=== PATIENT | male | born 1960 | race African-American/Black ===

== ENCOUNTER 2017-02-05 10:34 | Inpatient (IN) | payer MEDICAID, OTHER ==
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
[2017-02-05] MEDS ORDERED: MAG HYDROX/AL HYDROX/SIMETH 30 ML CUP PO PRN (14:36)
[2017-02-05] MEDS ORDERED: ACETAMINOPHEN TAB 325 MG TAB PO PRN (14:36)
[2017-02-05] MEDS ORDERED: MAGNESIUM HYDROXIDE 2,400 MG/10 ML CUP PO PRN (14:36)
[2017-02-05 15:19] LABS: Glucose,Whole Blood 133 mg/dL (75-99)
[2017-02-05] MEDS ORDERED: ZIPRASIDONE 20 MG VIAL IM PRN (15:31)
[2017-02-05] MEDS ORDERED: LORazepam 2 MG/ML SYRINGE IM PRN (15:31)
[2017-02-05 16:11] LABS: Appearance,Urine Clear (Clear); Bilirubin,Urine Negative (Negative); Glucose,Urine (UA) Negative (Negative); Ketones,Urine Negative (Negative); Leukocyte Esterase,Urine Negative (Negative); Nitrite,Urine Negative (Negative); PH, Urine 5.5 (5.0-8.0); Protein,Urine Trace (Negative); Specific Gravity,Urine 1.022 (1.001-1.035); UA Billing (MACRO vs. MICRO) CHEM
[2017-02-05 16:25] LABS: Basophils # (A) 0.1 k/uL (0-0.2); Basophils % (A) 1 %; CH 30.8; CHCM 33.9; Eosinophils # (A) 0.3 k/uL (0-0.7); Eosinophils % (A) 4 %; HCT 40.6 % (39.0-53.0); HDW 3.03; HGB 13.8 gm/dL (13.0-17.5); Luc # (Auto) 0.21; Luc % (Auto) 3; Lymphocytes # (A) 2.2 k/uL (1.0-4.8); Lymphocytes % (A) 31 %; MCH 31.1 pg (25.0-35.0); MCHC 34.1 g/dL (31.0-37.0); MCV 91.2 fL (80.0-100.0); Monocytes # (A) 0.4 k/uL (0-1.0); Monocytes % (A) 6 %; Neutrophils % (A) 56 %; RBC 4.45 m/uL (4.30-5.90); RDW 14.5 % (11.5-15.5); WBC 7.2 k/uL (3.8-10.6); WBC (Perox) 7.72
[2017-02-05 17:12] LABS: ALT 48 U/L (21-72); AST 28 U/L (17-59); Alkaline Phosphatase 86 U/L (38-126); Anion Gap 7 mmol/L; Blood Urea Nitrogen 15 mg/dL (9-20); Calcium 9.2 mg/dL (8.4-10.2); Carbon Dioxide 26 mmol/L (22-30); Chloride 106 mmol/L (98-107); Glucose 95 mg/dL (74-99); Non-African American GFR(MDRD) >60 (>60 ml/min/1.73 sqM); Potassium 3.9 mmol/L (3.5-5.1); Sodium 139 mmol/L (137-145); Total Bilirubin 0.5 mg/dL (0.2-1.3); Total Protein 6.7 g/dL (6.3-8.2)
[2017-02-05 17:36] LABS: Glucose,Whole Blood 112 mg/dL (75-99)
[2017-02-05] MEDS: metFORMIN 500 MG TAB PO SCH (17:58)
[2017-02-05] MEDS: HYDROcodone/APAP 5-325MG 1 EACH TAB PO PRN (17:58)
[2017-02-05] MEDS: INSULIN LISPRO (humaLOG) 300 UNIT/3 ML VIAL SQ SCH ×2 (18:00→20:39)
[2017-02-05 20:18] LABS: Glucose,Whole Blood 132 mg/dL (75-99)
[2017-02-05] MEDS: ATORVASTATIN 20 MG TAB PO SCH (20:40)
[2017-02-05 20:48] LABS: Hemoglobin A1C 5.9 % (4.2-6.1)
[2017-02-06 06:42] VITALS: PULSE 58
[2017-02-06 06:44] LABS: Glucose,Whole Blood 127 mg/dL (75-99)
[2017-02-06] MEDS: INSULIN LISPRO (humaLOG) 300 UNIT/3 ML VIAL SQ SCH ×6 (07:39→21:19)
[2017-02-06] MEDS: metFORMIN 500 MG TAB PO SCH ×2 (07:39→17:03)
[2017-02-06] MEDS: LISINOPRIL 5 MG TAB PO SCH (08:49)
[2017-02-06] MEDS: CHOLECALCIFEROL 1,000 UNIT TAB PO SCH (08:49)
[2017-02-06] MEDS: ASPIRIN 81 MG PO SCH (08:49)
[2017-02-06] MEDS: MULTIVITAMINS, THERA 1 EACH TAB PO SCH (08:49)
[2017-02-06] MEDS: NICOTINE 14MG/24HR PATCH TRANSDERM SCH (08:49)
[2017-02-06] MEDS: HYDROcodone/APAP 5-325MG 1 EACH TAB PO PRN ×2 (08:50→17:04)
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
[2017-02-06 11:56] VITALS: BMI 37.1
[2017-02-06 12:42] LABS: Glucose,Whole Blood 105 mg/dL (75-99)
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
[2017-02-06 17:53] LABS: Glucose,Whole Blood 99 mg/dL (75-99)
[2017-02-06 19:56] LABS: Glucose,Whole Blood 95 mg/dL (75-99)
[2017-02-06] MEDS ORDERED: INSULIN GLARGINE 100 UNIT/ML 10 ML VIAL SQ SCH (21:00)
[2017-02-06] MEDS: ATORVASTATIN 20 MG TAB PO SCH (21:12)
[2017-02-07 06:54] VITALS: BP 115/60; RESP 16; TEMP 97.8
[2017-02-07 07:13] LABS: Glucose,Whole Blood 98 mg/dL (75-99)
[2017-02-07] MEDS: INSULIN LISPRO (humaLOG) 300 UNIT/3 ML VIAL SQ SCH ×4 (08:03→12:45)
[2017-02-07] MEDS: MULTIVITAMINS, THERA 1 EACH TAB PO SCH (08:10)
[2017-02-07] MEDS: CHOLECALCIFEROL 1,000 UNIT TAB PO SCH (08:10)
[2017-02-07] MEDS: NICOTINE 14MG/24HR PATCH TRANSDERM SCH (08:10)
[2017-02-07] MEDS: ASPIRIN 81 MG PO SCH (08:10)
[2017-02-07] MEDS: LISINOPRIL 5 MG TAB PO SCH (08:10)
[2017-02-07] MEDS: metFORMIN 500 MG TAB PO SCH (08:10)
[2017-02-07] MEDS: HYDROcodone/APAP 5-325MG 1 EACH TAB PO PRN (08:11)
--- NOTE | 2017-02-07 10:45 | P.DS ---
Providers Date of admission: 02/05/17 14:35 Expected date of discharge: 02/07/17 Attending physician: Jaylin Glass MD Consults: 02/05/17 14:36 Consult Physician Routine Consulting Provider: Micki Courtney Consult Reason/Comments: follow up H & P Do you want consulting provider notified?: Yes Primary care physician: [facility] Hospital Course: Discharge Diagnoses: Cocaine use disorder, in early partial remission; alcohol use disorder, in early partial remission and marijuana use disorder in early partial remission Reason for Admission: Patient is a 56-year-old male [facility] from rehab at [place] in April 2016. Patient had been sober for 7-1/2 months and states that he met a woman several weeks prior to his admission and the Monday prior to his admission he began using cocaine, marijuana and alcohol with her. He states that he has had difficulties in the past with women and drugs and was using cocaine for sexual enhancement. Patient states that he began to feel suicidal after he realized that he had "messed up" and brought himself to the hospital. He states that he did not want to and did not make any suicide attempts, having suicidal thoughts while he was intoxicated. Patient had also stopped all of his medications for his medical problems. Patient reports having been treated in the past for depression but has not been on medication or in treatment for this for the last 3 years. Patient reports that he has not been feeling depressed and had been doing well in rehab until he had met this woman. Patient states that he was attending meetings while at the [facility]. Patient had moved to this area from [place]. Hospital Course: Patient was admitted on a voluntary basis, routine laboratory studies were obtained, medical consultation was obtained and the patient was ordered group and activity therapy and was placed on routine precautions. Patient was restarted on his medication for hypertension and diabetes mellitus. Patient was cooperative on the unit, reporting that he had made a mistake and once he was sober reported that he was no longer feeling suicidal and had no intention to take his life. Patient was not reporting any complaints of depression, was sleeping and eating well on the unit and his diabetes and hypertension were well controlled once the patient restarted his prior medications. Patient reported that he wished to return to the [facility] and was interested in trying to maintain his sobriety. Patient did not express or report any symptoms of depression and so no medications were started for this. Patient contacted his longterm house and he was able to return there and so will be discharged. Patient was also interested in a referral for outpatient therapy to discuss concerns that he has in relationships. Discharge Mental Status:Appearance/Attitude: Patient was dressed in a hospital gown, made good eye contact and was cooperative. Behavior: Patient did not display any psychomotor agitation or retardation. Speech/Language: Patient's speech was spontaneous and of normal volume and rhythm and he was coherent. Thought Process: Patient's thought processes were goal-directed and no circumstantial or tangential thought was elicited and no evidence of loose associations or flight of ideas. Thought Content: Patient denied any auditory or visual hallucinations, no paranoid or delusional ideation was elicited. Patient reports that he was eating and sleeping well. Patient stated that he was not feeling depressed, was motivated to return to the longterm house and maintaining his sobriety. Suicidal/Homicidal Ideation: Patient denied any current suicidal or homicidal ideation. Sensorium/Cognition: Patient was alert and oriented to person, place, and time and his memory was grossly intact. Mood/Affect: Patient's mood was euthymic and his affect was appropriate. Insight/Judgement: Patient's insight and judgment are fair. Laboratory Last Values WBC 7.2 k/uL (3.8-10.6) 02/05/17 16:15 RBC 4.45 m/uL (4.30-5.90) 02/05/17 16:15 Hgb 13.8 gm/dL (13.0-17.5) 02/05/17 16:15 Hct 40.6 % (39.0-53.0) 02/05/17 16:15 MCV 91.2 fL (80.0-100.0) 02/05/17 16:15 MCH 31.1 pg (25.0-35.0) 02/05/17 16:15 MCHC 34.1 g/dL (31.0-37.0) 02/05/17 16:15 RDW 14.5 % (11.5-15.5) 02/05/17 16:15 Plt Count 356 k/uL (150-450) 02/05/17 16:15 Neutrophils % 56 % 02/05/17 16:15 Lymphocytes % 31 % 02/05/17 16:15 Monocytes % 6 % 02/05/17 16:15 Eosinophils % 4 % 02/05/17 16:15 Basophils % 1 % 02/05/17 16:15 Neutrophils # 4.0 k/uL (1.3-7.7) 02/05/17 16:15 Lymphocytes # 2.2 k/uL (1.0-4.8) 02/05/17 16:15 Monocytes # 0.4 k/uL (0-1.0) 02/05/17 16:15 Eosinophils # 0.3 k/uL (0-0.7) 02/05/17 16:15 Basophils # 0.1 k/uL (0-0.2) 02/05/17 16:15 Sodium 139 mmol/L (137-145) 02/05/17 16:15 Potassium 3.9 mmol/L (3.5-5.1) 02/05/17 16:15 Chloride 106 mmol/L (98-107) 02/05/17 16:15 Carbon Dioxide 26 mmol/L (22-30) 02/05/17 16:15 Anion Gap 7 mmol/L 02/05/17 16:15 BUN 15 mg/dL (9-20) 02/05/17 16:15 Creatinine 1.22 mg/dL (0.66-1.25) 02/05/17 16:15 Est GFR (MDRD) Af Amer >60 (>60 ml/min/1.73 sqM) 02/05/17 16:15 Est GFR (MDRD) Non-Af >60 (>60 ml/min/1.73 sqM) 02/05/17 16:15 Glucose 95 mg/dL (74-99) 02/05/17 16:15 POC Glucose (mg/dL) 98 mg/dL (75-99) 02/07/17 07:00 POC Glu Proced Tech TRAM Shey Browne 02/07/17 07:[address] Glu mg/dL 123 mg/dL 02/05/17 16:15 Hemoglobin A1c 5.9 % (4.2-6.1) 02/05/17 16:15 Calcium 9.2 mg/dL (8.4-10.2) 02/05/17 16:15 Total Bilirubin 0.5 mg/dL (0.2-1.3) 02/05/17 16:15 AST 28 U/L (17-59) 02/05/17 16:15 ALT 48 U/L (21-72) 02/05/17 16:15 Alkaline Phosphatase 86 U/L (38-126) 02/05/17 16:15 Total Protein 6.7 g/dL (6.3-8.2) 02/05/17 16:15 Albumin 3.6 g/dL (3.5-5.0) 02/05/17 16:15 TSH 1.370 mIU/L (0.465-4.680) 02/05/17 16:15 Urine Color Yellow 02/05/17 12:25 Urine Appearance Clear (Clear) 02/05/17 12:25 Urine pH 5.5 (5.0-8.0) 02/05/17 12:25 Ur Specific [place] 1.022 (1.001-1.035) 02/05/17 12:25 Urine Protein Trace (Negative) H 02/05/17 12:25 Urine Glucose (UA) Negative (Negative) 02/05/17 12:25 Urine Ketones Negative (Negative) 02/05/17 12:25 Urine Blood Negative (Negative) 02/05/17 12:25 Urine Nitrite Negative (Negative) 02/05/17 12:25 Urine Bilirubin Negative (Negative) 02/05/17 12:25 Urine Urobilinogen 2.0 mg/dL (<2.0) 02/05/17 12:25 Ur Leukocyte Esterase Negative (Negative) 02/05/17 12:25 Urine Opiates Screen Not Detected (NotDetected) 02/05/17 12:25 Ur Oxycodone Screen Not Detected (NotDetected) 02/05/17 12:25 Urine Methadone Screen Not Detected (NotDetected) 02/05/17 12:25 Ur Propoxyphene Screen Not Detected (NotDetected) 02/05/17 12:25 Ur Barbiturates Screen Not Detected (NotDetected) 02/05/17 12:25 U Tricyclic Antidepress Not Detected (NotDetected) 02/05/17 12:25 Ur Phencyclidine Scrn Not Detected (NotDetected) 02/05/17 12:25 Ur Amphetamines Screen Not Detected (NotDetected) 02/05/17 12:25 U Methamphetamines Scrn Not Detected (NotDetected) 02/05/17 12:25 U Benzodiazepines Scrn Not Detected (NotDetected) 02/05/17 12:25 Urine Cocaine Screen Detected (NotDetected) H 02/05/17 12:25 U Marijuana (THC) Screen Detected (NotDetected) H 02/05/17 12:25 Risk Assessment: Patient's risk is low should he remain sober and avoid any use of alcohol/drugs, follow-up with outpatient therapy. Discharge Plan: Patient will return to a sober longterm house to live, patient was encouraged to maintain his sobriety and attend AA/NA meetings. Patient was also referred to [facility] for outpatient therapy. Patient was not prescribed any psychotropic medication, patient will continue on aspirin 81 mg a day, vitamin D3 1000 units a day, [place] 10-325 one tab twice a day on an as -needed basis for pain, Lantus 50 units subcu at bedtime, Apidra 12 units subcu 3 times a day, Lisinopril 5 mg daily, multivitamins 1 tab daily, Zocor 10 mg at bedtime and Glucophage 1000 mg twice a day. Patient reported to me that he needed prescriptions for his [place], Apidra and Lantus and had sufficient of his other medications as well as glucose testing supplies and needles to give himself the insulin. Patient was encouraged to follow-up with his primary care provider within the next 2 weeks. Patient was encouraged to avoid any alcohol or drugs. Patient Condition at Discharge: Stable Plan - Discharge Summary New Discharge Prescriptions: New Nicotine 14Mg/24Hr Patch [Habitrol] 1 patch TRANSDERM DAILY #14 patch Continue Multivitamins, Thera [Multivitamin (formulary)] 1 tab PO DAILY Cholecalciferol [Vitamin D3] 1,000 unit PO DAILY Aspirin [Adult Low Dose Aspirin EC] 81 mg PO DAILY metFORMIN HCL [Glucophage] 1,000 mg PO BID Simvastatin [Zocor] 10 mg PO HS Lisinopril [Zestril] 5 mg PO DAILY HYDROcodone/APAP 10-325MG [[place] 10-325] 1 tab PO BID PRN #28 PRN Reason: Pain Insulin Glargine [Lantus] 50 unit SQ HS 30 Days Insulin Glulisine [Apidra] 12 unit SQ TID 30 Days Discharge Medication List Aspirin [Adult Low Dose Aspirin EC] 81 mg PO DAILY 02/05/17 [History] Cholecalciferol [Vitamin D3] 1,000 unit PO DAILY 02/05/17 [History] Lisinopril [Zestril] 5 mg PO DAILY 02/05/17 [History] Multivitamins, Thera [Multivitamin (formulary)] 1 tab PO DAILY 02/05/17 [History ] Simvastatin [Zocor] 10 mg PO HS 02/05/17 [History] metFORMIN HCL [Glucophage] 1,000 mg PO BID 02/05/17 [History] HYDROcodone/APAP 10-325MG [[place] 10-325] 1 tab PO BID PRN #28 02/07/17 [Rx] Insulin Glargine [Lantus] 50 unit SQ HS 30 Days 02/07/17 [Rx] Insulin Glulisine [Apidra] 12 unit SQ TID 30 Days 02/07/17 [Rx] Nicotine 14Mg/24Hr Patch [Habitrol] 1 patch TRANSDERM DAILY #14 patch 02/07/17 [ Rx] Follow up Appointment(s)/Referral(s): Maykel Rodriguez [Outside] - 1 Week (w/ Chyna Perez. Patient must arrive at 1:30pm for paperwork) Flakita Pimentel MD [Primary Care Provider] - 1-2 days Discharge Disposition: HOME SELF-CARE
[2017-02-07 12:32] LABS: Glucose,Whole Blood 88 mg/dL (75-99)
== END 2017-02-07 15:10 | disposition home or self-care (01) | DRG 897 ==
LOC: EC 10:34 → 3MHU 14:35
PROVIDERS: ADMIT Psychiatry & Neurology Psychiatry; ATTEND Psychiatry & Neurology Psychiatry
DX: F14.29 Cocaine dependence with unspecified cocaine-induced disorder (principal); R45.851 Suicidal ideations; F10.29 Alcohol dependence with unspecified alcohol-induced disorder; I10 Essential (primary) hypertension; E11.9 Type 2 diabetes mellitus without complications; F12.29 Cannabis dependence with unspecified cannabis-induced disorder; M21.372 Foot drop, left foot; T40.2X6A Underdosing of other opioids, initial encounter; T45.2X6A Underdosing of vitamins, initial encounter; T46.4X6A Underdosing of angiotensin-converting-enzyme inhibitors, initial encounter; T46.6X6A Underdosing of antihyperlipidemic and antiarteriosclerotic drugs, initial encounter; T39.016A Underdosing of aspirin, initial encounter; F17.210 Nicotine dependence, cigarettes, uncomplicated; Z79.82 Long term (current) use of aspirin; Z79.4 Long term (current) use of insulin; Z79.899 Other long term (current) drug therapy; Z87.828 Personal history of other (healed) physical injury and trauma; Z89.422 Acquired absence of other left toe(s); Z89.412 Acquired absence of left great toe; Z91.5 Personal history of self-harm; Z71.41 Alcohol abuse counseling and surveillance of alcoholic; Z71.51 Drug abuse counseling and surveillance of drug abuser; Z79.891 Long term (current) use of opiate analgesic; Z86.59 Personal history of other mental and behavioral disorders; Z91.128 Patient's intentional underdosing of medication regimen for other reason
CPT/HCPCS: 80053; 80306; 81003; 82075; 83036; 84443; 85025; 99285

== ENCOUNTER 2017-02-27 03:12 | Emergency (ER) | payer OTHER ==
[2017-02-27 03:21] VITALS: BP 162/68; PULSE 86; RESP 18; TEMP 98.7
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
[2017-02-27 03:41] LABS: Glucose,Whole Blood 100 mg/dL (75-99)
== END 2017-02-27 06:28 | disposition home or self-care (01) ==
LOC: EC 03:12
DX: F32.9 Major depressive disorder, single episode, unspecified (principal); R45.851 Suicidal ideations; I10 Essential (primary) hypertension; E11.9 Type 2 diabetes mellitus without complications; F17.200 Nicotine dependence, unspecified, uncomplicated; Z79.82 Long term (current) use of aspirin; Z79.84 Long term (current) use of oral hypoglycemic drugs; Z79.899 Other long term (current) drug therapy; Z59.0 Homelessness
CPT/HCPCS: 36415; 80306; 82075; 99284

== ENCOUNTER 2018-04-07 03:24 | Emergency (ER) | payer OTHER ==
[2018-04-07 04:35] LABS: Glucose,Whole Blood 77 mg/dL (75-99)
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
[2018-04-07 05:03] LABS: Appearance,Urine Clear (Clear); Bilirubin,Urine Negative (Negative); Blood,Urine Negative (Negative); Color,Urine Yellow; Glucose,Urine (UA) Negative (Negative); Ketones,Urine Negative (Negative); Leukocyte Esterase,Urine Negative (Negative); Nitrite,Urine Negative (Negative); Protein,Urine Negative (Negative); Specific Gravity,Urine 1.009 (1.001-1.035); Urobilinogen,Urine <2.0 mg/dL (<2.0)
[2018-04-07 05:16] LABS: Amphetamine Screen,Urine Not Detected (NotDetected); Barbiturate Screen,Urine Not Detected (NotDetected); Benzodiazepines Screen,Urine Not Detected (NotDetected); Cocaine Screen,Urine Detected (NotDetected); Methadone Screen, Urine Not Detected (NotDetected); Opiate Screen,Urine Not Detected (NotDetected); Oxycodone Screen, Urine Not Detected (NotDetected); Phencyclidine Screen,Urine Not Detected (NotDetected); Tricyclic Antidepressant,Urine Not Detected (NotDetected); Urn Cannabinoid Scrn Not Detected (NotDetected)
[2018-04-07] MEDS ORDERED: HYDROcodone/APAP 10-325MG 1 EACH TAB PO ONE (06:15)
[2018-04-07] MEDS ORDERED: INSULIN ASPART 100 UNIT/ML 1 ML 10 ML VIAL SQ SCH ×2 (07:30)
[2018-04-07] MEDS ORDERED: ASPIRIN 81 MG PO SCH (09:00)
[2018-04-07] MEDS ORDERED: NON-FORMULARY DRUG (Metformin Hcl [Glucophage] 1,000 MG) PO SCH (09:00)
[2018-04-07] MEDS ORDERED: LISINOPRIL 5 MG TAB PO SCH (09:00)
[2018-04-07] MEDS ORDERED: NICOTINE 14MG/24HR PATCH TRANSDERM SCH (09:00)
[2018-04-07 10:41] LABS: Basophils # (A) 0.1 k/uL (0-0.2); Basophils % (A) 1 %; Eosinophils # (A) 0.2 k/uL (0-0.7); Eosinophils % (A) 3 %; HGB 15.1 gm/dL (13.0-17.5); Lymphocytes # (A) 1.9 k/uL (1.0-4.8); Lymphocytes % (A) 24 %; MCH 30.7 pg (25.0-35.0); MCHC 33.6 g/dL (31.0-37.0); MCV 91.5 fL (80.0-100.0); Mean Platelet Volume 6.3; Monocytes # (A) 0.6 k/uL (0-1.0); Monocytes % (A) 7 %; Neutrophils # (A) 4.9 k/uL (1.3-7.7); Neutrophils % (A) 62 %; Platelet Count 263 k/uL (150-450); RBC 4.92 m/uL (4.30-5.90); RDW 13.7 % (11.5-15.5); WBC 7.8 k/uL (3.8-10.6)
[2018-04-07 10:50] LABS: ALT 32 U/L (21-72); AST 36 U/L (17-59); Albumin 4.2 g/dL (3.5-5.0); Alkaline Phosphatase 94 U/L (38-126); Anion Gap 10 mmol/L; Blood Urea Nitrogen 14 mg/dL (9-20); Calcium 9.6 mg/dL (8.4-10.2); Carbon Dioxide 23 mmol/L (22-30); Chloride 106 mmol/L (98-107); Glucose 74 mg/dL (74-99); Potassium 4.1 mmol/L (3.5-5.1); Sodium 139 mmol/L (137-145); Total Bilirubin 0.7 mg/dL (0.2-1.3); Total Protein 7.8 g/dL (6.3-8.2)
[2018-04-07 21:40] VITALS: RESP 18
[2018-04-07 22:09] LABS: Glucose,Whole Blood 141 mg/dL (75-99)
[2018-04-08 00:19] VITALS: BP 131/66; PULSE 89; TEMP 97.5
== END 2018-04-08 00:19 | disposition other institution (70) ==
LOC: EC 03:24
DX: F32.9 Major depressive disorder, single episode, unspecified (principal); G89.29 Other chronic pain; R45.851 Suicidal ideations; R44.0 Auditory hallucinations; E11.9 Type 2 diabetes mellitus without complications; I10 Essential (primary) hypertension; F17.200 Nicotine dependence, unspecified, uncomplicated; Z79.899 Other long term (current) drug therapy; Z79.4 Long term (current) use of insulin; Z79.82 Long term (current) use of aspirin; Z53.8 Procedure and treatment not carried out for other reasons
CPT/HCPCS: 36415; 80053; 80306; 81003; 83036; 85025; 99285

== ENCOUNTER 2018-06-24 13:32 | Emergency (ER) | payer OTHER ==
[2018-06-24 15:06] LABS: Glucose,Whole Blood 113 mg/dL (75-99)
[2018-06-24 15:14] LABS: Amphetamine Screen,Urine Not Detected (NotDetected); Barbiturate Screen,Urine Not Detected (NotDetected); Benzodiazepines Screen,Urine Not Detected (NotDetected); Cocaine Screen,Urine Detected (NotDetected); Methadone Screen, Urine Not Detected (NotDetected); Opiate Screen,Urine Not Detected (NotDetected); Oxycodone Screen, Urine Not Detected (NotDetected); Phencyclidine Screen,Urine Not Detected (NotDetected); Tricyclic Antidepressant,Urine Not Detected (NotDetected); Urn Cannabinoid Scrn Not Detected (NotDetected)
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
[2018-06-24 17:17] LABS: Basophils # (A) 0.1 k/uL (0-0.2); Basophils % (A) 1 %; Eosinophils # (A) 0.1 k/uL (0-0.7); Eosinophils % (A) 3 %; HCT 45.4 % (39.0-53.0); HGB 15.5 gm/dL (13.0-17.5); Lymphocytes % (A) 38 %; MCH 32.3 pg (25.0-35.0); MCHC 34.3 g/dL (31.0-37.0); MCV 94.2 fL (80.0-100.0); Mean Platelet Volume 6.4; Monocytes # (A) 0.2 k/uL (0-1.0); Monocytes % (A) 5 %; Neutrophils # (A) 2.7 k/uL (1.3-7.7); Neutrophils % (A) 50 %; Platelet Count 276 k/uL (150-450); RBC 4.81 m/uL (4.30-5.90); RDW 15.3 % (11.5-15.5); WBC 5.4 k/uL (3.8-10.6)
[2018-06-24 17:29] LABS: ALT 68 U/L (21-72); AST 62 U/L (17-59); Albumin 3.9 g/dL (3.5-5.0); Alkaline Phosphatase 93 U/L (38-126); Anion Gap 7 mmol/L; Blood Urea Nitrogen 16 mg/dL (9-20); Calcium 9.5 mg/dL (8.4-10.2); Carbon Dioxide 25 mmol/L (22-30); Chloride 108 mmol/L (98-107); Glucose 143 mg/dL (74-99); Potassium 4.1 mmol/L (3.5-5.1); Sodium 140 mmol/L (137-145); Total Bilirubin 0.4 mg/dL (0.2-1.3); Total Protein 7.3 g/dL (6.3-8.2)
[2018-06-24 18:34] LABS: Appearance,Urine Clear (Clear); Bilirubin,Urine Negative (Negative); Blood,Urine Negative (Negative); Color,Urine Yellow; Glucose,Urine (UA) Negative (Negative); Ketones,Urine Negative (Negative); Leukocyte Esterase,Urine Negative (Negative); Nitrite,Urine Negative (Negative); PH, Urine 5.5 (5.0-8.0); Protein,Urine Trace (Negative); Specific Gravity,Urine 1.019 (1.001-1.035); Urobilinogen,Urine <2.0 mg/dL (<2.0)
[2018-06-24 18:45] LABS: Glucose,Whole Blood 121 mg/dL (75-99)
[2018-06-24] MEDS ORDERED: HYDROcodone/APAP 10-325MG 1 EACH TAB PO ONE (18:51)
[2018-06-24 21:09] VITALS: BP 137/89; PULSE 87; RESP 15; TEMP 98.7
== END 2018-06-24 21:30 ==
LOC: EC 13:32
DX: R45.851 Suicidal ideations (principal); F31.30 Bipolar disorder, current episode depressed, mild or moderate severity, unspecified; R44.0 Auditory hallucinations; G89.29 Other chronic pain; M79.606 Pain in leg, unspecified; I10 Essential (primary) hypertension; E11.9 Type 2 diabetes mellitus without complications; F17.200 Nicotine dependence, unspecified, uncomplicated; Z79.4 Long term (current) use of insulin; Z79.82 Long term (current) use of aspirin; Z79.899 Other long term (current) drug therapy; Z89.412 Acquired absence of left great toe; Z89.422 Acquired absence of other left toe(s)
CPT/HCPCS: 36415; 80053; 80306; 81003; 82075; 85025; 99285

== ENCOUNTER 2018-07-08 09:30 | Inpatient (IN) | payer MEDICAID, OTHER ==
[2018-07-08] MEDS ORDERED: FAMOTIDINE 20 MG TAB PO STA (09:55)
[2018-07-08] MEDS ORDERED: ONDANSETRON ODT 4 MG TAB PO STA (09:55)
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
[2018-07-08 14:30] LABS: Anisocytosis Slight; Basophils # (A) 0.1 k/uL (0-0.2); Basophils % (A) 2 %; Eosinophils # (A) 0.2 k/uL (0-0.7); Eosinophils % (A) 3 %; Lymphocytes # (A) 2.2 k/uL (1.0-4.8); Lymphocytes % (A) 38 %; MCH 31.9 pg (25.0-35.0); MCHC 34.2 g/dL (31.0-37.0); MCV 93.3 fL (80.0-100.0); Mean Platelet Volume 8.1; Monocytes # (A) 0.5 k/uL (0-1.0); Monocytes % (A) 8 %; Neutrophils # (A) 2.6 k/uL (1.3-7.7); Neutrophils % (A) 45 %; Platelet Count 290 k/uL (150-450); RBC 4.71 m/uL (4.30-5.90); RDW 16.5 % (11.5-15.5); WBC 5.8 k/uL (3.8-10.6)
[2018-07-08 14:33] LABS: Appearance,Urine Clear (Clear); Bilirubin,Urine Negative (Negative); Blood,Urine Negative (Negative); Color,Urine Yellow; Glucose,Urine (UA) Negative (Negative); Ketones,Urine 2+ (Negative); Leukocyte Esterase,Urine Negative (Negative); Nitrite,Urine Negative (Negative); Protein,Urine Trace (Negative); Specific Gravity,Urine 1.026 (1.001-1.035)
[2018-07-08 14:39] LABS: Albumin 3.9 g/dL (3.5-5.0); Calcium 8.9 mg/dL (8.4-10.2); Potassium 4.2 mmol/L (3.5-5.1); Total Bilirubin 0.7 mg/dL (0.2-1.3); Total Protein 7.1 g/dL (6.3-8.2)
[2018-07-08 14:42] LABS: Amphetamine Screen,Urine Not Detected (NotDetected); Barbiturate Screen,Urine Not Detected (NotDetected); Benzodiazepines Screen,Urine Not Detected (NotDetected); Cocaine Screen,Urine Detected (NotDetected); Methadone Screen, Urine Not Detected (NotDetected); Opiate Screen,Urine Not Detected (NotDetected); Oxycodone Screen, Urine Not Detected (NotDetected); Phencyclidine Screen,Urine Not Detected (NotDetected); Tricyclic Antidepressant,Urine Not Detected (NotDetected); Urn Cannabinoid Scrn Not Detected (NotDetected)
[2018-07-08] MEDS ORDERED: MAG HYDROX/AL HYDROX/SIMETH 30 ML CUP PO PRN (18:49)
[2018-07-08] MEDS ORDERED: ACETAMINOPHEN TAB 325 MG TAB PO PRN (18:49)
[2018-07-08] MEDS ORDERED: MAGNESIUM HYDROXIDE 2,400 MG/10 ML CUP PO PRN (18:49)
[2018-07-08] MEDS ORDERED: LORazepam 0.5 MG TAB PO PRN (18:53)
[2018-07-08 21:26] LABS: Glucose,Whole Blood 125 mg/dL (75-99)
[2018-07-08 23:11] VITALS: BMI 37.2
[2018-07-09 06:06] LABS: Glucose,Whole Blood 135 mg/dL (75-99)
[2018-07-09] MEDS: NICOTINE 14MG/24HR PATCH TRANSDERM SCH (09:01)
[2018-07-09] MEDS ORDERED: traZODone HCL 50 MG TAB PO PRN (09:35)
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
[2018-07-09] MEDS: DULoxetine HCL 30 MG CAPSULE.DR PO SCH (10:54)
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
[2018-07-09 11:17] LABS: Hemoglobin A1C 6.1 % (4.0-6.0)
[2018-07-09] MEDS: metFORMIN 500 MG TAB PO SCH ×2 (11:24→18:02)
[2018-07-09] MEDS: ATORVASTATIN 40 MG TAB PO SCH (11:24)
[2018-07-09] MEDS: FOLIC ACID 1 MG TAB PO SCH (11:24)
[2018-07-09] MEDS: THIAMINE 100 MG TAB PO SCH (11:25)
[2018-07-09] MEDS: LISINOPRIL 5 MG TAB PO SCH (11:25)
[2018-07-09] MEDS: MULTIVITAMINS, THERA 1 EACH TAB PO SCH (11:25)
[2018-07-09 12:37] LABS: Glucose,Whole Blood 126 mg/dL (75-99)
[2018-07-09] MEDS: INSULIN ASPART (NovoLOG) 100 UNIT/ML VIAL SQ SCH ×5 (13:06→19:57)
[2018-07-09 17:33] LABS: Glucose,Whole Blood 107 mg/dL (75-99)
[2018-07-09 20:00] LABS: Glucose,Whole Blood 127 mg/dL (75-99)
[2018-07-09] MEDS ORDERED: INSULIN DETEMIR (LEVEMIR) 100 UNIT/ML SYR SQ SCH (21:00)
[2018-07-10 06:20] LABS: Glucose,Whole Blood 103 mg/dL (75-99)
[2018-07-10] MEDS: INSULIN ASPART (NovoLOG) 100 UNIT/ML VIAL SQ SCH ×7 (07:46→20:37)
[2018-07-10] MEDS: metFORMIN 500 MG TAB PO SCH ×2 (08:54→17:39)
[2018-07-10] MEDS: DULoxetine HCL 30 MG CAPSULE.DR PO SCH (08:55)
[2018-07-10] MEDS: NICOTINE 14MG/24HR PATCH TRANSDERM SCH (08:55)
[2018-07-10] MEDS: ATORVASTATIN 40 MG TAB PO SCH (08:55)
[2018-07-10] MEDS: LISINOPRIL 5 MG TAB PO SCH (08:55)
--- NOTE | 2018-07-10 10:47 | P.PN ---
Progress Note - Text Interval history: The patient's found in his room. He indicates that his stomach is upset and he had diarrhea this morning. He was able to eat breakfast. He has met with social work he has the number for the access line but has not yet called. We discussed the importance of calling and he was agreeable. He has no questions or concerns regarding medication. He indicates he went to groups yesterday but none this morning due to not feeling well. Mental status exam: The patient is alert he is lying in bed he is dressed in hospital gowns. Eye contact is appropriate. He indicates his mood is still depressed he states he still has some intermittent suicidal thoughts but feels safe in the hospital. He is reporting no homicidal ideation. He is endorsing no auditory or visual hallucinations or any specific delusions. He demonstrates no verbal or physical aggressiveness. Insight and judgment limited. He is oriented to person place month and year. He Plan: The patient will continue on his current psychotropic medication. We will monitor him for safety and encourage participation in the milieu. He is instructed to call the access line today to initiate the process of getting accepted to inpatient chemical dependency treatment. Vital signs reviewed. CIWA score 0.
[2018-07-10] MEDS: FOLIC ACID 1 MG TAB PO SCH (12:30)
[2018-07-10] MEDS: MULTIVITAMINS, THERA 1 EACH TAB PO SCH (12:31)
[2018-07-10] MEDS: THIAMINE 100 MG TAB PO SCH (12:31)
[2018-07-10 12:37] LABS: Glucose,Whole Blood 106 mg/dL (75-99)
[2018-07-10 17:32] LABS: Glucose,Whole Blood 115 mg/dL (75-99)
[2018-07-10 20:22] LABS: Glucose,Whole Blood 106 mg/dL (75-99)
[2018-07-10] MEDS: INSULIN DETEMIR (LEVEMIR) 100 UNIT/ML SYR SQ SCH (21:19)
[2018-07-11 03:00] LABS: Glucose,Whole Blood 107 mg/dL (75-99)
[2018-07-11 06:52] LABS: Glucose,Whole Blood 112 mg/dL (75-99)
[2018-07-11] MEDS: INSULIN ASPART (NovoLOG) 100 UNIT/ML VIAL SQ SCH ×7 (07:54→20:30)
[2018-07-11] MEDS: metFORMIN 500 MG TAB PO SCH ×2 (07:57→17:15)
[2018-07-11] MEDS: LISINOPRIL 5 MG TAB PO SCH (07:57)
[2018-07-11] MEDS: DULoxetine HCL 30 MG CAPSULE.DR PO SCH (07:58)
[2018-07-11] MEDS: ATORVASTATIN 40 MG TAB PO SCH (07:58)
--- NOTE | 2018-07-11 10:46 | P.PN ---
Progress Note - Text Interval history: The patient is found in his room he reports feeling sick. He describes nausea and diarrhea. He indicates he did not eat yesterday or breakfast this morning. We discussed that this could be due to the Cymbalta or a viral etiology. We will go ahead and discontinue the Cymbalta in case it is iatrogenic. He did call for inpatient chemical dependency treatment placement and he is scheduled to be at [facility] on July 16. The patient indicates he attended some group activities yesterday. Mental status exam: The patient is an -Italian male appearing his stated age. He is lying in bed. He makes eye contact speech is fluent spontaneous nonpressured. He endorses a depressed mood with ongoing suicidal thoughts. He feels hopeless. He reports no homicidal ideation intent or plan. He is reporting no auditory or visual hallucinations or any specific delusions. There is no observed evidence of psychosis. He demonstrates no tangential thinking loose associations or flight of ideas. He does not appear hypomanic or manic. Insight and judgment limited. Affect constricted. Plan: We will discontinue the Cymbalta in case it is causing his GI distress. We'll monitor those symptoms further and monitor him for safety. He is encouraged to participate in the milieu. Vital signs reviewed.
[2018-07-11 12:16] LABS: Glucose,Whole Blood 151 mg/dL (75-99)
[2018-07-11] MEDS: MULTIVITAMINS, THERA 1 EACH TAB PO SCH (12:51)
[2018-07-11] MEDS: FOLIC ACID 1 MG TAB PO SCH (12:51)
[2018-07-11] MEDS: THIAMINE 100 MG TAB PO SCH (12:51)
[2018-07-11 17:05] LABS: Glucose,Whole Blood 117 mg/dL (75-99)
[2018-07-11 20:13] LABS: Glucose,Whole Blood 116 mg/dL (75-99)
[2018-07-11] MEDS: INSULIN DETEMIR (LEVEMIR) 100 UNIT/ML SYR SQ SCH ×2 (20:27→22:26)
[2018-07-12 05:56] LABS: Glucose,Whole Blood 255 mg/dL (75-99)
[2018-07-12] MEDS: metFORMIN 500 MG TAB PO SCH ×2 (07:48→17:30)
[2018-07-12] MEDS: ATORVASTATIN 40 MG TAB PO SCH (07:48)
[2018-07-12] MEDS: LISINOPRIL 5 MG TAB PO SCH (07:49)
[2018-07-12] MEDS: INSULIN ASPART (NovoLOG) 100 UNIT/ML VIAL SQ SCH ×7 (07:49→20:58)
--- NOTE | 2018-07-12 10:56 | P.PN ---
Progress Note - Text Interval history: The patient is found in his room he reports his stomach is feeling better. He believes the Cymbalta was causing the GI distress. He reports he attended groups in the afternoon he is encouraged to do so all day long. He indicates he is looking forward to going to [place] for inpatient chemical dependency treatment. His blood sugar was elevated this morning. He endorses hopelessness thinking with continued suicidal thoughts off and on. He feels it's necessary that he goes inpatient chemical dependency treatment directly from here. Mental status exam: The patient is an -Yemeni male appearing his stated age she is lying in bed. Eye contact is appropriate. Speech is fluent and spontaneous nonpressured. He reports feeling sad he indicates having continued suicidal thoughts but feels safe in the hospital. He is reporting no homicidal ideation. He reports no auditory or visual hallucinations or any specific delusions. He demonstrates no verbal or physical aggressiveness. Insight and judgment limited. Plan: The patient will continue being encouraged to attend groups. His GI symptoms seem to be improving which we presume were from the Cymbalta. I will wait another day before prescribing another antidepressant. Tomorrow we will discuss which medication we will initiate for his depressive symptoms. He strongly encouraged to attend all groups. Vital signs reviewed.
[2018-07-12 12:48] LABS: Glucose,Whole Blood 123 mg/dL (75-99)
[2018-07-12] MEDS: THIAMINE 100 MG TAB PO SCH (13:01)
[2018-07-12] MEDS: MULTIVITAMINS, THERA 1 EACH TAB PO SCH (13:01)
[2018-07-12] MEDS: FOLIC ACID 1 MG TAB PO SCH (13:01)
[2018-07-12 17:35] LABS: Glucose,Whole Blood 88 mg/dL (75-99)
[2018-07-12 20:17] LABS: Glucose,Whole Blood 124 mg/dL (75-99)
[2018-07-12] MEDS: INSULIN DETEMIR (LEVEMIR) 100 UNIT/ML SYR SQ SCH (20:59)
[2018-07-13 06:30] LABS: Glucose,Whole Blood 92 mg/dL (75-99)
[2018-07-13] MEDS: INSULIN ASPART (NovoLOG) 100 UNIT/ML VIAL SQ SCH ×7 (07:26→20:05)
[2018-07-13] MEDS: LISINOPRIL 5 MG TAB PO SCH (09:01)
[2018-07-13] MEDS: metFORMIN 500 MG TAB PO SCH ×2 (09:01→17:49)
[2018-07-13] MEDS: THIAMINE 100 MG TAB PO SCH (09:01)
[2018-07-13] MEDS: ATORVASTATIN 40 MG TAB PO SCH (09:01)
[2018-07-13] MEDS: MULTIVITAMINS, THERA 1 EACH TAB PO SCH (09:01)
[2018-07-13] MEDS: FOLIC ACID 1 MG TAB PO SCH (09:01)
--- NOTE | 2018-07-13 10:18 | P.PN ---
Progress Note - Text Interval history: The patient is found in group he follows me to an interview room. He states that his mood is beginning to improve. He is looking forward to going to [place] for inpatient chemical dependency treatment. He has made the call to arrange for transportation through his insurance. We reviewed his medication options as the Cymbalta seemed to cause intolerable GI side effects. We decided we would initiate Lexapro. He continues to affirm that he is never been on that medication. We reviewed potential benefits and side effects and his questions were answered. Mental status exam: The patient is an -Djiboutian male appearing his stated age. He is dressed in hospital gowns. He is ambulating without use of implement and is wearing a brace on his lower extremity. Eye contact is appropriate speech is fluent spontaneous nonpressured. He indicates his mood is improving he still has some fleeting suicidal thoughts. He is reporting no homicidal ideation. He is reporting no auditory or visual hallucinations or any specific delusions. He does not appear hypomanic or manic. Plan: The patient will be started on Lexapro 10 mg daily. We will monitor him for safety. He is encouraged to continue participating in groups. We plan to discharge him on Monday for inpatient chemical dependency treatment.
[2018-07-13 12:40] LABS: Glucose,Whole Blood 96 mg/dL (75-99)
[2018-07-13 17:41] LABS: Glucose,Whole Blood 156 mg/dL (75-99)
[2018-07-13] MEDS: INSULIN DETEMIR (LEVEMIR) 100 UNIT/ML SYR SQ SCH (20:06)
[2018-07-13 20:19] LABS: Glucose,Whole Blood 172 mg/dL (75-99)
[2018-07-14 06:24] LABS: Glucose,Whole Blood 107 mg/dL (75-99)
[2018-07-14] MEDS: INSULIN ASPART (NovoLOG) 100 UNIT/ML VIAL SQ SCH ×7 (06:47→20:06)
[2018-07-14] MEDS: THIAMINE 100 MG TAB PO SCH (09:44)
[2018-07-14] MEDS: ATORVASTATIN 40 MG TAB PO SCH (09:44)
[2018-07-14] MEDS: MULTIVITAMINS, THERA 1 EACH TAB PO SCH (09:44)
[2018-07-14] MEDS: LISINOPRIL 5 MG TAB PO SCH (09:45)
[2018-07-14] MEDS: metFORMIN 500 MG TAB PO SCH ×2 (09:45→17:21)
[2018-07-14] MEDS: FOLIC ACID 1 MG TAB PO SCH (09:45)
--- NOTE | 2018-07-14 12:36 | P.PN ---
Progress Note - Text Progress Note Date: 07/14/18 Progress Note - Text Interval history: The patient is found in group he follows me to an interview room. He states that his mood is beginning to improve. He is looking forward to going to [place] for inpatient chemical dependency treatment. He has made the call to arrange for transportation through his insurance. We reviewed his medication options as the Cymbalta seemed to cause intolerable GI side effects. We decided we would initiate Lexapro. He continues to affirm that he is never been on that medication. We reviewed potential benefits and side effects and his questions were answered. Mental status exam: The patient is an -Luxembourger male appearing his stated age. He is dressed in hospital gowns. He is ambulating without use of implement and is wearing a brace on his lower extremity. Eye contact is appropriate speech is fluent spontaneous nonpressured. He indicates his mood is improving he still has some fleeting suicidal thoughts. He is reporting no homicidal ideation. He is reporting no auditory or visual hallucinations or any specific delusions. He does not appear hypomanic or manic. Plan: The patient will be started on Lexapro 10 mg daily. We will monitor him for safety. He is encouraged to continue participating in groups. We plan to discharge him on Monday for inpatient chemical dependency treatment.
[2018-07-14 12:43] LABS: Glucose,Whole Blood 97 mg/dL (75-99)
[2018-07-14 17:29] LABS: Glucose,Whole Blood 127 mg/dL (75-99)
[2018-07-14 20:03] LABS: Glucose,Whole Blood 153 mg/dL (75-99)
[2018-07-14] MEDS: INSULIN DETEMIR (LEVEMIR) 100 UNIT/ML SYR SQ SCH (20:08)
[2018-07-15 06:40] LABS: Glucose,Whole Blood 90 mg/dL (75-99)
[2018-07-15 06:40] LABS: Glucose,Whole Blood 503 mg/dL (75-99)
[2018-07-15] MEDS: INSULIN ASPART (NovoLOG) 100 UNIT/ML VIAL SQ SCH ×7 (07:37→22:21)
[2018-07-15] MEDS: ATORVASTATIN 40 MG TAB PO SCH (10:04)
[2018-07-15] MEDS: LISINOPRIL 5 MG TAB PO SCH (10:05)
[2018-07-15] MEDS: metFORMIN 500 MG TAB PO SCH ×2 (10:05→18:02)
--- NOTE | 2018-07-15 11:38 | P.PN ---
Progress Note - Text Progress Note Date: 07/15/18 nterval history: The patient is found in group he follows me to an interview room. He states that his mood is beginning to improve. He is looking forward to going to [place] for inpatient chemical dependency treatment. He has made the call to arrange for transportation through his insurance. We reviewed his medication options as the Cymbalta seemed to cause intolerable GI side effects. We decided we would initiate Lexapro. He continues to affirm that he is never been on that medication. We reviewed potential benefits and side effects and his questions were answered. He is found lying in bed follow spelling and did not get up for breakfast. Encouraged him to get up and be part of the [facility] milieu and go to groups. Mental status exam: The patient is an -Citizen Of [place] male appearing his stated age. He is dressed in hospital gowns. He is ambulating without use of implement and is wearing a brace on his lower extremity. Eye contact is appropriate speech is fluent spontaneous nonpressured. He indicates his mood is improving he still has some fleeting suicidal thoughts. He is reporting no homicidal ideation. He is reporting no auditory or visual hallucinations or any specific delusions. He does not appear hypomanic or manic. Plan: The patient will be started on Lexapro 10 mg daily daily. We will monitor him for safety. He is encouraged to continue participating in groups. We plan to discharge him on Monday for inpatient chemical dependency treatment.
[2018-07-15 12:41] LABS: Glucose,Whole Blood 93 mg/dL (75-99)
[2018-07-15] MEDS: FOLIC ACID 1 MG TAB PO SCH (12:44)
[2018-07-15] MEDS: THIAMINE 100 MG TAB PO SCH (12:44)
[2018-07-15] MEDS: MULTIVITAMINS, THERA 1 EACH TAB PO SCH (12:44)
[2018-07-15 17:26] LABS: Glucose,Whole Blood 93 mg/dL (75-99)
[2018-07-15 20:26] LABS: Glucose,Whole Blood 95 mg/dL (75-99)
[2018-07-15] MEDS: INSULIN DETEMIR (LEVEMIR) 100 UNIT/ML SYR SQ SCH (21:33)
[2018-07-16 06:34] LABS: Glucose,Whole Blood 97 mg/dL (75-99)
[2018-07-16] MEDS: INSULIN ASPART (NovoLOG) 100 UNIT/ML VIAL SQ SCH ×7 (07:58→20:51)
[2018-07-16] MEDS: LISINOPRIL 5 MG TAB PO SCH (08:17)
[2018-07-16] MEDS: ESCITALOPRAM 10 MG TAB PO SCH (08:17)
[2018-07-16] MEDS: metFORMIN 500 MG TAB PO SCH ×2 (08:17→18:19)
[2018-07-16] MEDS: ATORVASTATIN 40 MG TAB PO SCH (08:17)
--- NOTE | 2018-07-16 10:03 | P.DS ---
Providers Date of admission: 07/08/18 18:38 Expected date of discharge: 07/16/18 Attending physician: Salazar Sellers Consults: 07/08/18 19:26 Consult Physician Routine Consulting Provider: Micki Courtney Consult Reason/Comments: H and P Do you want consulting provider notified?: Yes Primary care physician: Flakita Ramosumar - Discharge Diagnosis(es) (1) Major depressive disorder, recurrent severe without psychotic features Current Visit: Yes Status: Acute Priority: High (2) Alcohol use disorder Current Visit: Yes Status: Acute Priority: High (3) Cocaine use disorder Current Visit: Yes Status: Acute Priority: Medium Hospital Course: Brief summary admission note: This patient is a 57-year-old -Burmese male who was admitted to the mental health unit on the petition indicating he was having suicidal ideation. The patient reported he was struggling with life and wanted to kill himself. He had been noncompliant with medication. He describes poor energy and feeling tired. He has a known history of alcohol use disorder and had been drinking excessively. For full details please refer to my psychiatric evaluation dated 07/09/2018. Summary of hospital course: The patient was admitted to the mental health unit voluntarily. We reviewed his presenting symptoms and treatment options. We decided to prescribe Cymbalta for his symptoms of depression and this may as well help pain complaint. However the patient experienced significant GI distress with the Cymbalta and we had to discontinue that medication. After the side effect abated we initiated Lexapro 10 mg daily and he describes no side effects. He has been using trazodone at bedtime as needed. The patient selectively attended groups and this has improved over the course of the hospitalization. Appetite stable. He was seen by internal medicine for routine history and physical exam. He indicated he wanted to participate in inpatient chemical dependency treatment and that has been arranged at [facility]. The patient states his acute suicidal thoughts have resolved and he feels hopeful. Mental status exam: The patient is an -Burmese male appearing his stated age. He is dressed in shorts and a T-shirt he is wearing his own shoes with a brace on his left lower extremity. Eye contact is appropriate speech is fluent spontaneous nonpressured. He indicates his mood is better he feels motivated for inpatient chemical dependency treatment. He reports no acute suicidal or homicidal ideation intent or plan. He reports no auditory or visual hallucinations or any specific delusions. There is no observed evidence of psychosis. He demonstrates no tangential thinking loose associations or flight of ideas. He does not appear hypomanic or manic. He is oriented to person place and date. He demonstrates no verbal or physical aggressiveness. Impressions 1. Major depressive disorder recurrent severe without psychosis, alcohol use disorder, cocaine use disorder 2. Hypertension diabetes chronic pain 3. Homelessness limited support Plan: The patient will be discharged mental health unit today. He will be going to [facility] and for inpatient chemical dependency treatment. He will continue on Lexapro 10 mg daily trazodone 50 mg at bedtime as needed. At this time he is appropriate for transition to the next level of care. There is no imminent safety risk at this time. He is encouraged to return to the hospital with any acute safety concerns. Clearly he is instructed to abstain from any use of alcohol marijuana or illicit drugs as these will provoke mood symptoms and elevate his safety risk. Patient Condition at Discharge: Stable Plan - Discharge Summary Discharge Rx Participant: No New Discharge Prescriptions: New Atorvastatin [Lipitor] 40 mg PO DAILY #30 tab Insulin Aspart [NovoLOG (formulary)] 5 unit SQ AC-TID #1 vial Insulin Detemir [Levemir] 10 unit SQ HS #1 vial Lisinopril [Zestril] 5 mg PO DAILY #30 tab metFORMIN HCL [Glucophage] 1,000 mg PO BID-W/MEALS #60 tab traZODone HCL [Desyrel] 50 mg PO HS PRN #30 tab PRN Reason: Insomnia Continue Escitalopram [Lexapro] 10 mg PO DAILY #30 tab Multivitamins, Thera [Multivitamin (formulary)] 1 tab PO DAILY #30 tab Discontinued Aspirin [Adult Low Dose Aspirin EC] 81 mg PO DAILY metFORMIN HCL [Glucophage] 1,000 mg PO BID Lisinopril [Zestril] 5 mg PO DAILY Insulin Glargine [Lantus] 50 unit SQ HS 30 Days Insulin Glulisine [Apidra] 12 unit SQ AC-TID Cholecalciferol (Vitamin D3) [Vitamin D3] 2,000 unit PO DAILY Lurasidone [Latuda] 40 mg PO DAILY HYDROcodone/APAP 10-325MG [[place] 10-325] 1 tab PO DAILY PRN PRN Reason: Pain Simvastatin [Zocor] 80 mg PO DAILY Amitriptyline HCl [Elavil] 50 mg PO DAILY Discharge Medication List Atorvastatin [Lipitor] 40 mg PO DAILY #30 tab 07/16/18 [Rx] Escitalopram [Lexapro] 10 mg PO DAILY #30 tab 07/16/18 [Rx] Insulin Aspart [NovoLOG (formulary)] 5 unit SQ AC-TID #1 vial 07/16/18 [Rx] Insulin Detemir [Levemir] 10 unit SQ HS #1 vial 07/16/18 [Rx] Lisinopril [Zestril] 5 mg PO DAILY #30 tab 07/16/18 [Rx] Multivitamins, Thera [Multivitamin (formulary)] 1 tab PO DAILY #30 tab 07/16/18 [Rx] metFORMIN HCL [Glucophage] 1,000 mg PO BID-W/MEALS #60 tab 07/16/18 [Rx] traZODone HCL [Desyrel] 50 mg PO HS PRN #30 tab 07/16/18 [Rx] Follow up Appointment(s)/Referral(s): Flakita Pimentel MD [Primary Care Provider] - 1-2 days Activity/Diet/Wound Care/Special Instructions: cardiac diet , diabetic diet 1800 k tamie per day activity as tolerated
[2018-07-16 12:25] LABS: Glucose,Whole Blood 87 mg/dL (75-99)
[2018-07-16] MEDS: FOLIC ACID 1 MG TAB PO SCH (12:30)
[2018-07-16] MEDS: THIAMINE 100 MG TAB PO SCH (12:30)
[2018-07-16] MEDS: MULTIVITAMINS, THERA 1 EACH TAB PO SCH (12:30)
[2018-07-16 17:46] LABS: Glucose,Whole Blood 126 mg/dL (75-99)
[2018-07-16 20:16] LABS: Glucose,Whole Blood 155 mg/dL (75-99)
[2018-07-16] MEDS: INSULIN DETEMIR (LEVEMIR) 100 UNIT/ML SYR SQ SCH (21:39)
[2018-07-17 06:21] LABS: Glucose,Whole Blood 89 mg/dL (75-99)
[2018-07-17 06:29] VITALS: BP 107/54; PULSE 59; RESP 18; TEMP 97.9
[2018-07-17] MEDS: INSULIN ASPART (NovoLOG) 100 UNIT/ML VIAL SQ SCH ×2 (07:38)
[2018-07-17] MEDS: ESCITALOPRAM 10 MG TAB PO SCH (07:46)
[2018-07-17] MEDS: LISINOPRIL 5 MG TAB PO SCH (07:46)
[2018-07-17] MEDS: ATORVASTATIN 40 MG TAB PO SCH (07:46)
[2018-07-17] MEDS: metFORMIN 500 MG TAB PO SCH (07:46)
--- NOTE | 2018-07-17 11:04 | P.DS ---
Providers Date of admission: 07/08/18 18:38 Expected date of discharge: 07/17/18 Attending physician: Salazar Sellers Consults: 07/08/18 19:26 Consult Physician Routine Consulting Provider: Micki Courtney Consult Reason/Comments: H and P Do you want consulting provider notified?: Yes Primary care physician: Flakita Pimentel - Discharge Diagnosis(es) (1) Major depressive disorder, recurrent severe without psychotic features Current Visit: Yes Status: Acute Priority: High (2) Alcohol use disorder Current Visit: Yes Status: Acute Priority: High (3) Cocaine use disorder Current Visit: Yes Status: Acute Priority: Medium Hospital Course: The patient was scheduled for discharge yesterday. Due to transportation issues the discharge was canceled and arrangements were made for him to go to [place] for inpatient chemical dependency treatment today. He was originally admitted for suicidal ideation that has resolved. Please refer to discharge summary dictated 07/16/2018 for full detail. Mental status exam: The patient is an -Chilean male appearing his stated age. He is ambulating without use of implement. Hygiene grooming adequate. Speech is fluent spontaneous nonpressured. He indicates his mood is good and he is feeling hopeful. He is reporting no suicidal ideation intent or plan no homicidal ideation intent or plan. He endorses no auditory or visual hallucinations or any specific delusions. There is no observed evidence of psychosis. Thought process is linear he demonstrates no tangential thinking loose associations or flight of ideas. He does not appear hypomanic or manic. He demonstrates no verbal or physical aggressiveness he demonstrates no involuntary repetitive movements. He is oriented to person place and date. Insight and judgment grossly intact. Plan: The patient will be discharged today to go directly to [place] for inpatient chemical dependency treatment. There is no imminent safety risk and he is appropriate for this transition of care. Patient Condition at Discharge: Stable Plan - Discharge Summary Discharge Rx Participant: No New Discharge Prescriptions: New Atorvastatin [Lipitor] 40 mg PO DAILY #30 tab Insulin Aspart [NovoLOG (formulary)] 5 unit SQ AC-TID #1 vial Insulin Detemir [Levemir] 10 unit SQ HS #1 vial Lisinopril [Zestril] 5 mg PO DAILY #30 tab metFORMIN HCL [Glucophage] 1,000 mg PO BID-W/MEALS #60 tab traZODone HCL [Desyrel] 50 mg PO HS PRN #30 tab PRN Reason: Insomnia Continue Escitalopram [Lexapro] 10 mg PO DAILY #30 tab Multivitamins, Thera [Multivitamin (formulary)] 1 tab PO DAILY #30 tab Discontinued Aspirin [Adult Low Dose Aspirin EC] 81 mg PO DAILY metFORMIN HCL [Glucophage] 1,000 mg PO BID Lisinopril [Zestril] 5 mg PO DAILY Insulin Glargine [Lantus] 50 unit SQ HS 30 Days Insulin Glulisine [Apidra] 12 unit SQ AC-TID Cholecalciferol (Vitamin D3) [Vitamin D3] 2,000 unit PO DAILY Lurasidone [Latuda] 40 mg PO DAILY HYDROcodone/APAP 10-325MG [[place] 10-325] 1 tab PO DAILY PRN PRN Reason: Pain Simvastatin [Zocor] 80 mg PO DAILY Amitriptyline HCl [Elavil] 50 mg PO DAILY Discharge Medication List Atorvastatin [Lipitor] 40 mg PO DAILY #30 tab 07/16/18 [Rx] Escitalopram [Lexapro] 10 mg PO DAILY #30 tab 07/16/18 [Rx] Insulin Aspart [NovoLOG (formulary)] 5 unit SQ AC-TID #1 vial 07/16/18 [Rx] Insulin Detemir [Levemir] 10 unit SQ HS #1 vial 07/16/18 [Rx] Lisinopril [Zestril] 5 mg PO DAILY #30 tab 07/16/18 [Rx] Multivitamins, Thera [Multivitamin (formulary)] 1 tab PO DAILY #30 tab 07/16/18 [Rx] metFORMIN HCL [Glucophage] 1,000 mg PO BID-W/MEALS #60 tab 07/16/18 [Rx] traZODone HCL [Desyrel] 50 mg PO HS PRN #30 tab 07/16/18 [Rx] Follow up Appointment(s)/Referral(s): Flakita Pimentel MD [Primary Care Provider] - 1-2 days Patient Instructions/Handouts: Depression (DC), Abuse of Alcohol (DC), Help Prevent Suicide (DC) Activity/Diet/Wound Care/Special Instructions: Activity as tolerated. 1800 tamie carb control diet. Avoid the use of street drugs and alcohol. Remove all firearms from the home. Take all medications as prescribed. Follow up with your Primary Care Physician in one to two days. When you are in need of refills on your medications please contact your medical provider and/or your outpatient psychiatrist to have this done. Please go to the scheduled outpatient appointment for aftercare. If symptoms return or become worse call the crisis line and/ or go the nearest emergency room for an evaluation. l
== END 2018-07-17 12:15 | DRG 885 ==
LOC: EC 09:30 → 3MHU 18:38
PROVIDERS: ADMIT Psychiatry & Neurology Psychiatry; ATTEND Psychiatry & Neurology Psychiatry
DX: F33.2 Major depressive disorder, recurrent severe without psychotic features (principal); R45.851 Suicidal ideations; E11.65 Type 2 diabetes mellitus with hyperglycemia; I10 Essential (primary) hypertension; E78.5 Hyperlipidemia, unspecified; F10.20 Alcohol dependence, uncomplicated; F14.10 Cocaine abuse, uncomplicated; K30 Functional dyspepsia; F41.9 Anxiety disorder, unspecified; G89.29 Other chronic pain; M54.9 Dorsalgia, unspecified; F17.210 Nicotine dependence, cigarettes, uncomplicated; Z71.6 Tobacco abuse counseling; M20.62 Acquired deformities of toe(s), unspecified, left foot; Z91.19 Patient's noncompliance with other medical treatment and regimen; Z79.82 Long term (current) use of aspirin; Z79.4 Long term (current) use of insulin; Z79.899 Other long term (current) drug therapy; Z59.0 Homelessness
CPT/HCPCS: 36415; 80053; 80061; 80306; 81003; 82075; 83036; 84443; 85025; 99285

== ENCOUNTER 2018-08-01 13:58 | Emergency (ER) | payer OTHER ==
[2018-08-01 14:10] VITALS: RESP 18
[2018-08-01 15:14] LABS: Amphetamine Screen,Urine Not Detected (NotDetected); Barbiturate Screen,Urine Not Detected (NotDetected); Benzodiazepines Screen,Urine Not Detected (NotDetected); Cocaine Screen,Urine Detected (NotDetected); Methadone Screen, Urine Not Detected (NotDetected); Opiate Screen,Urine Not Detected (NotDetected); Oxycodone Screen, Urine Not Detected (NotDetected); Phencyclidine Screen,Urine Not Detected (NotDetected); Tricyclic Antidepressant,Urine Not Detected (NotDetected); Urn Cannabinoid Scrn Detected (NotDetected)
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
[2018-08-01 16:27] VITALS: BP 120/71; PULSE 97; TEMP 98.2
== END 2018-08-01 16:27 | disposition home or self-care (01) ==
LOC: EC 13:58
DX: F32.9 Major depressive disorder, single episode, unspecified (principal); F10.10 Alcohol abuse, uncomplicated; R45.851 Suicidal ideations; R45.850 Homicidal ideations; F17.200 Nicotine dependence, unspecified, uncomplicated
CPT/HCPCS: 80306; 82075; 99285

== ENCOUNTER 2018-08-18 04:14 | Emergency (ER) | payer OTHER ==
[2018-08-18 04:28] VITALS: TEMP 98.7
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
[2018-08-18 04:57] LABS: Basophils # (A) 0.1 k/uL (0-0.2); Basophils % (A) 1 %; Eosinophils # (A) 0.2 k/uL (0-0.7); Eosinophils % (A) 2 %; HCT 45.7 % (39.0-53.0); Lymphocytes # (A) 2.4 k/uL (1.0-4.8); Lymphocytes % (A) 24 %; MCHC 32.9 g/dL (31.0-37.0); MCV 94.3 fL (80.0-100.0); Mean Platelet Volume 5.9; Monocytes # (A) 0.7 k/uL (0-1.0); Monocytes % (A) 7 %; Neutrophils # (A) 6.5 k/uL (1.3-7.7); Neutrophils % (A) 65 %; Platelet Count 310 k/uL (150-450); RBC 4.85 m/uL (4.30-5.90); RDW 13.7 % (11.5-15.5)
[2018-08-18 05:00] LABS: ALT 46 U/L (21-72); AST 42 U/L (17-59); Acetaminophen <10.0 ug/mL; Albumin 4.7 g/dL (3.5-5.0); Alcohol 47 mg/dL; Alkaline Phosphatase 124 U/L (38-126); Anion Gap 19 mmol/L; Blood Urea Nitrogen 19 mg/dL (9-20); Calcium 9.6 mg/dL (8.4-10.2); Carbon Dioxide 18 mmol/L (22-30); Chloride 103 mmol/L (98-107); Glucose 82 mg/dL (74-99); Potassium 4.3 mmol/L (3.5-5.1); Salicylate <1.0 mg/dL; Sodium 140 mmol/L (137-145); Total Bilirubin 0.8 mg/dL (0.2-1.3); Total Protein 8.2 g/dL (6.3-8.2)
[2018-08-18 11:23] LABS: Amphetamine Screen,Urine Not Detected (NotDetected); Barbiturate Screen,Urine Not Detected (NotDetected); Benzodiazepines Screen,Urine Not Detected (NotDetected); Cocaine Screen,Urine Detected (NotDetected); Methadone Screen, Urine Not Detected (NotDetected); Opiate Screen,Urine Not Detected (NotDetected); Oxycodone Screen, Urine Not Detected (NotDetected); Phencyclidine Screen,Urine Not Detected (NotDetected); Tricyclic Antidepressant,Urine Not Detected (NotDetected); Urn Cannabinoid Scrn Not Detected (NotDetected)
[2018-08-18 13:22] VITALS: BP 127/91; PULSE 97; RESP 18
== END 2018-08-18 13:34 | disposition home or self-care (01) ==
LOC: EC 04:14
DX: F14.10 Cocaine abuse, uncomplicated (principal); I10 Essential (primary) hypertension; E11.9 Type 2 diabetes mellitus without complications; F31.9 Bipolar disorder, unspecified; F17.200 Nicotine dependence, unspecified, uncomplicated; Z79.82 Long term (current) use of aspirin; Z79.4 Long term (current) use of insulin; Z79.899 Other long term (current) drug therapy
CPT/HCPCS: 36415; 93005; 80053; 85025; 80306; 83520 ×2; 99285; G0480; 80320; 82075

== ENCOUNTER 2018-12-29 13:42 | Inpatient (IN) | payer MEDICAID, OTHER ==
[2018-12-29] MEDS ORDERED: SODIUM CHLORIDE 0.9% 1,000 ML IV STA (14:03)
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
[2018-12-29 14:38] LABS: Basophils # (A) 0.1 k/uL (0-0.2); Basophils % (A) 2 %; Eosinophils # (A) 0.3 k/uL (0-0.7); Eosinophils % (A) 4 %; HGB 13.8 gm/dL (13.0-17.5); Lymphocytes # (A) 2.8 k/uL (1.0-4.8); Lymphocytes % (A) 36 %; MCH 30.7 pg (25.0-35.0); MCHC 33.5 g/dL (31.0-37.0); MCV 91.6 fL (80.0-100.0); Mean Platelet Volume 6.4; Monocytes # (A) 0.5 k/uL (0-1.0); Monocytes % (A) 7 %; Neutrophils % (A) 50 %; Platelet Count 313 k/uL (150-450); RBC 4.48 m/uL (4.30-5.90); RDW 13.5 % (11.5-15.5)
[2018-12-29 14:43] LABS: Prothrombin Time 10.4 sec (9.0-12.0)
[2018-12-29 15:01] LABS: ALT 46 U/L (21-72); AST 48 U/L (17-59); Acetaminophen <10.0 ug/mL; African American GFR (CKD) >90 (>60 ml/min/1.73 sqM); Albumin 4.3 g/dL (3.5-5.0); Alcohol <10 mg/dL; Alkaline Phosphatase 106 U/L (38-126); Anion Gap 9 mmol/L; Blood Urea Nitrogen 16 mg/dL (9-20); Calcium 9.3 mg/dL (8.4-10.2); Carbon Dioxide 24 mmol/L (22-30); Chloride 108 mmol/L (98-107); Creatine Kinase 916 U/L (55-170); Glucose 62 mg/dL (74-99); Lipase 61 U/L (23-300); Potassium 3.6 mmol/L (3.5-5.1); Salicylate <1.0 mg/dL; Sodium 141 mmol/L (137-145); Total Bilirubin 0.6 mg/dL (0.2-1.3); Total Protein 7.6 g/dL (6.3-8.2)
[2018-12-29] MEDS ORDERED: LORazepam 1 MG TAB PO PRN (20:32)
[2018-12-29] MEDS ORDERED: MAGNESIUM HYDROXIDE 2,400 MG/10 ML CUP PO PRN (20:32)
[2018-12-29] MEDS ORDERED: MAG HYDROX/AL HYDROX/SIMETH 30 ML CUP PO PRN (20:32)
[2018-12-29] MEDS ORDERED: ACETAMINOPHEN TAB 325 MG TAB PO PRN (20:32)
[2018-12-29 22:35] VITALS: BMI 36.0
[2018-12-30] MEDS: INSULIN ASPART (NovoLOG) 100 UNIT/ML VIAL SQ SCH ×5 (07:48→20:38)
[2018-12-30 07:50] LABS: Glucose,Whole Blood 115 mg/dL (75-99)
[2018-12-30] MEDS: ESCITALOPRAM 20 MG TAB PO SCH (08:07)
[2018-12-30] MEDS: ARIPiprazole 10 MG TAB PO SCH (08:07)
[2018-12-30] MEDS: ASPIRIN 81 MG PO SCH (08:07)
[2018-12-30] MEDS: LISINOPRIL 5 MG TAB PO SCH (08:07)
[2018-12-30 08:38] LABS: ALT 35 U/L (21-72); AST 29 U/L (17-59); African American GFR (CKD) >90 (>60 ml/min/1.73 sqM); Albumin 3.7 g/dL (3.5-5.0); Alkaline Phosphatase 88 U/L (38-126); Anion Gap 9 mmol/L; Blood Urea Nitrogen 18 mg/dL (9-20); Calcium 8.8 mg/dL (8.4-10.2); Carbon Dioxide 22 mmol/L (22-30); Chloride 109 mmol/L (98-107); Cholesterol 170 mg/dL (<200); Glucose 165 mg/dL (74-99); HDL Cholesterol 40 mg/dL (40-60); LDL Cholesterol,Calculated 89 mg/dL (0-99); Potassium 3.6 mmol/L (3.5-5.1); Sodium 140 mmol/L (137-145); Total Bilirubin 0.3 mg/dL (0.2-1.3); Total Protein 6.6 g/dL (6.3-8.2); Triglycerides 203 mg/dL (<150)
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
[2018-12-30 08:53] LABS: Basophils # (A) 0.1 k/uL (0-0.2); Basophils % (A) 2 %; Eosinophils # (A) 0.3 k/uL (0-0.7); Eosinophils % (A) 5 %; HGB 13.8 gm/dL (13.0-17.5); Lymphocytes # (A) 2.1 k/uL (1.0-4.8); Lymphocytes % (A) 30 %; MCHC 32.7 g/dL (31.0-37.0); MCV 94.7 fL (80.0-100.0); Mean Platelet Volume 6.5; Monocytes # (A) 0.4 k/uL (0-1.0); Monocytes % (A) 6 %; Neutrophils # (A) 3.8 k/uL (1.3-7.7); Neutrophils % (A) 55 %; Platelet Count 298 k/uL (150-450); RBC 4.44 m/uL (4.30-5.90); RDW 13.9 % (11.5-15.5); WBC 6.9 k/uL (3.8-10.6)
[2018-12-30] MEDS: metFORMIN 500 MG TAB PO SCH ×2 (09:41→17:40)
[2018-12-30 12:44] LABS: Glucose,Whole Blood 93 mg/dL (75-99)
[2018-12-30 17:35] LABS: Glucose,Whole Blood 92 mg/dL (75-99)
[2018-12-30 20:13] LABS: Glucose,Whole Blood 129 mg/dL (75-99)
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
[2018-12-30] MEDS: ATORVASTATIN 20 MG TAB PO SCH (20:38)
[2018-12-30] MEDS: INSULIN DETEMIR (LEVEMIR) 100 UNIT/ML SYR SQ SCH (21:00)
--- NOTE | 2018-12-31 00:02 | CONS ---
CONSULTATION REASON FOR CONSULTATION: Advice regarding leg pain and other medical issues requested by Psychiatry. HISTORY OF PRESENT ILLNESS: This 58-year-old gentleman with a past medical history of multiple medical problems including diabetes, hypertension, anxiety, bipolar depression, being followed by Dr. Flakita Pimentel in the outpatient setting, was admitted for psychiatric evaluation. There is no history of fever, rigors or chills. No history of headache, loss of consciousness, seizures. Patient is complaining of left leg pain. Patient is apparently taking [place] for that. PAST MEDICAL HISTORY: History of diabetes, hypertension, history of anxiety, bipolar depression. MEDICATIONS ARE: 1. Desyrel 100 mg p.o. q.h.s. 2. Metformin 1000 mg p.o. b.i.d. 3. Zocor 40 mg q.h.s. 4. Multivitamins 1 p.o. daily. 5. Zestril 10/5 mg p.o. daily. 6. Apidra 12 units a.c. breakfast. 7. Lantus 10 units subcu q.h.s. 8. Cymbalta 60 mg p.o. daily. 9. Vitamin D3 2000 daily. 10.Ecotrin 81 mg. 11.Abilify 2 mg p.o. daily. ALLERGIES: None. FAMILY HISTORY: No history of heart disease or strokes in the family. SOCIAL HISTORY: Previous history of substance abuse, cocaine, marijuana, history of nicotine dependence. REVIEW OF SYSTEMS: ENT: No diminished vision or hearing. CARDIOVASCULAR: No angina or palpitations. RESPIRATION: No cough. No hemoptysis. GI no nausea. no dysuria or hematuria. CENTRAL NERVOUS SYSTEM: No numbness or weakness, ALLERGY/IMMUNOLOGY: No history of anemia. MUSCULOSKELETAL mentioned earlier. HEMATOLOGY/ONCOLOGY: No history of anemia. ENDOCRINE: Diabetes, DERMATOLOGY negative. RHEUMATOLOGY: Negative. PSYCHIATRIC: As mentioned earlier. PHYSICAL EXAMINATION: Alert and oriented times three. Pulse 70, blood pressure 129/59, respiration 16, temperature 97.8, pulse ox 97% on room air. HEENT: Conjunctivae normal. NECK: No jugular venous distention. CARDIOVASCULAR: S1, S2 muffled. RESPIRATORY: Breath sounds diminished in the bases. A few scattered rhonchi and crackles. ABDOMEN: Soft, obese, nontender. LEGS: No edema. No swelling. NERVOUS SYSTEM: Higher functions as mentioned earlier. Moves all four extremities. LYMPHATICS: No lymph nodes palpable in the neck, axilla or groin. SKIN: No ulcer, no rash and no bleeding. JOINTS: No active deforming arthropathy. LAB STUDIES: CBC within normal limits. Glucose 165 and 129. Triglycerides 209 and 203. ASSESSMENT: 1. Diabetes mellitus type 2. 2. Hypertension. 3. Left foot amputation. 4. Left leg pain. 5. Anxiety, bipolar depression. 6. History of nicotine dependence. 7. Previous history of polysubstance abuse. RECOMMENDATIONS AND DISCUSSION: This 58-year-old gentleman presented with multiple medical issues, at this time I recommend to continue current medications, management and symptomatic treatment. Otherwise I would recommend resume the home medications and Accu-Cheks a.c. and at bedtime. Continue to monitor. The patient is apparently taking [place] at home. I would recommend resume the same pain medication as verification with the pharmacy. Otherwise, I would also recommend the patient follow up with Dr. Flakita Pimentel after discharge. Thank you for letting us participate in the care this patient. MMODL / IJN: [id number] / JAYRO
[2018-12-31] MEDS: INSULIN ASPART (NovoLOG) 100 UNIT/ML VIAL SQ SCH ×5 (06:32→20:22)
[2018-12-31 06:38] LABS: Glucose,Whole Blood 113 mg/dL (75-99)
[2018-12-31] MEDS: ESCITALOPRAM 20 MG TAB PO SCH (08:49)
[2018-12-31] MEDS: LISINOPRIL 5 MG TAB PO SCH (08:49)
[2018-12-31] MEDS: metFORMIN 500 MG TAB PO SCH ×2 (08:49→18:04)
[2018-12-31] MEDS: ARIPiprazole 10 MG TAB PO SCH (08:49)
[2018-12-31] MEDS: ASPIRIN 81 MG PO SCH (08:49)
[2018-12-31 12:46] LABS: Hemoglobin A1C 6.2 % (4.0-6.0)
[2018-12-31 12:57] LABS: Glucose,Whole Blood 129 mg/dL (75-99)
--- NOTE | 2018-12-31 14:34 | P.PN ---
Progress Note - Text Progress Note Date: 12/31/18 Interval History: Patient is a 58-year-old male who was seen today and he reports that he has fears he was having fewer suicidal thoughts, states he is feeling a little better on the new medication. Patient states he slept well last night but has not been attending groups or activities today. Patient was seen in his room he was in bed. Patient reported no side effects from the new medication. Mental Status:Appearance/Attitude: Patient is dressed in a hospital gown lying in bed, made intermittent eye contact and was cooperative Behavior: Patient does not exhibit any psychomotor agitation or retardation. Speech/Language: Patient's speech is spontaneous of normal volume and rhythm and he is coherent Thought Process: Patient is goal-directed, his answers have little elaboration there is no evidence of loose association or flight of ideas Thought Content: Patient denies auditory or visual hallucinations and no paranoid or delusional ideation is elicited. Patient states he been feeling depressed on the outside, feeling suicidal and came to the hospital. Patient states he sleeping better here and is eating Suicidal/Homicidal Ideation: Patient denies any current homicidal ideation and states that the suicidal thoughts are decreasing. Patient states he has no intent to act or plan Sensorium/Cognition: Patient is alert and oriented to person, place, and time Mood/Affect: Patient's mood is bland and his affect is appropriate to his mood Insight/Judgment: Patient's insight and judgment are fair Assessment: Patient was admitted for suicidal thoughts, is homeless and he denied using any drugs or alcohol. Patient states that he was feeling increasingly depressed even though his medications recently been changed. Patient states that he is feeling better, no suicidal thoughts are decreasing and is not feeling as depressed. Patient states that he slept well and is eating well. Patient is not attending groups or activities Plan: Patient will continue on Abilify 10 mg daily and Lexapro 20 mg daily to target his depressive symptoms. Patient continues to require hospitalization to further stabilize his mood.
[2018-12-31 18:21] LABS: Glucose,Whole Blood 148 mg/dL (75-99)
[2018-12-31 20:20] LABS: Glucose,Whole Blood 116 mg/dL (75-99)
[2018-12-31] MEDS: INSULIN DETEMIR (LEVEMIR) 100 UNIT/ML SYR SQ SCH (21:13)
[2018-12-31] MEDS: ATORVASTATIN 20 MG TAB PO SCH (21:15)
[2019-01-01 07:13] VITALS: BP 137/65; PULSE 60; RESP 14; TEMP 97.7
[2019-01-01] MEDS: INSULIN ASPART (NovoLOG) 100 UNIT/ML VIAL SQ SCH ×2 (07:43→07:51)
[2019-01-01] MEDS: metFORMIN 500 MG TAB PO SCH (07:51)
[2019-01-01 08:08] LABS: Glucose,Whole Blood 101 mg/dL (75-99)
[2019-01-01] MEDS: ARIPiprazole 10 MG TAB PO SCH (08:20)
[2019-01-01] MEDS: ESCITALOPRAM 20 MG TAB PO SCH (08:20)
[2019-01-01] MEDS: ASPIRIN 81 MG PO SCH (08:21)
[2019-01-01] MEDS: LISINOPRIL 5 MG TAB PO SCH (08:21)
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
== END 2019-01-01 12:00 | disposition home or self-care (01) | DRG 885 ==
LOC: EC 13:42 → 3MHU 20:22
PROVIDERS: ADMIT Psychiatry & Neurology Psychiatry; ATTEND Psychiatry & Neurology Psychiatry
DX: F33.1 Major depressive disorder, recurrent, moderate (principal); R45.851 Suicidal ideations; I10 Essential (primary) hypertension; F41.9 Anxiety disorder, unspecified; F17.200 Nicotine dependence, unspecified, uncomplicated; F10.20 Alcohol dependence, uncomplicated; F12.20 Cannabis dependence, uncomplicated; E11.9 Type 2 diabetes mellitus without complications; Z59.0 Homelessness; Z79.4 Long term (current) use of insulin; Z79.82 Long term (current) use of aspirin; Z79.899 Other long term (current) drug therapy; Z89.422 Acquired absence of other left toe(s)
CPT/HCPCS: 36415; 80053; 80061; 80320; 80329; 82075; 82550; 82553; 83036; 83520; 83690; 84443; 85025; 85610; 93005; 96360; 96361; 99285

== ENCOUNTER 2019-02-06 05:20 | Emergency (ER) | payer OTHER ==
[2019-02-06 05:27] VITALS: TEMP 97.8
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
[2019-02-06] MEDS ORDERED: SODIUM CHLORIDE 0.9% 500 ML 500 ML IV STA (06:02)
[2019-02-06 06:11] LABS: Anisocytosis Slight; Basophils # (A) 0.1 k/uL (0-0.2); Basophils % (A) 2 %; Eosinophils # (A) 0.2 k/uL (0-0.7); Eosinophils % (A) 2 %; HCT 44.6 % (39.0-53.0); HGB 14.1 gm/dL (13.0-17.5); Lymphocytes # (A) 3.1 k/uL (1.0-4.8); Lymphocytes % (A) 36 %; MCHC 31.7 g/dL (31.0-37.0); MCV 97.9 fL (80.0-100.0); Macrocytosis Slight; Mean Platelet Volume 6.7; Monocytes # (A) 0.6 k/uL (0-1.0); Monocytes % (A) 7 %; Neutrophils # (A) 4.5 k/uL (1.3-7.7); Neutrophils % (A) 51 %; Platelet Count 321 k/uL (150-450); RBC 4.55 m/uL (4.30-5.90); RDW 16.7 % (11.5-15.5); WBC 8.8 k/uL (3.8-10.6)
[2019-02-06 06:22] LABS: African American GFR (CKD) >90 (>60 ml/min/1.73 sqM); Alcohol 28 mg/dL; Anion Gap 14 mmol/L; Blood Urea Nitrogen 15 mg/dL (9-20); Calcium 9.2 mg/dL (8.4-10.2); Carbon Dioxide 21 mmol/L (22-30); Chloride 107 mmol/L (98-107); Glucose 92 mg/dL (74-99); Potassium 3.4 mmol/L (3.5-5.1); Sodium 142 mmol/L (137-145)
[2019-02-06 09:05] LABS: Amphetamine Screen,Urine Not Detected (NotDetected); Barbiturate Screen,Urine Not Detected (NotDetected); Benzodiazepines Screen,Urine Not Detected (NotDetected); Cocaine Screen,Urine Detected (NotDetected); Methadone Screen, Urine Not Detected (NotDetected); Opiate Screen,Urine Not Detected (NotDetected); Oxycodone Screen, Urine Not Detected (NotDetected); Phencyclidine Screen,Urine Not Detected (NotDetected); Tricyclic Antidepressant,Urine Detected (NotDetected); Urn Cannabinoid Scrn Detected (NotDetected)
[2019-02-06 15:47] VITALS: BP 158/93; PULSE 74; RESP 16
== END 2019-02-06 15:45 | disposition home or self-care (01) ==
LOC: EC 05:20
DX: R45.851 Suicidal ideations (principal); F17.200 Nicotine dependence, unspecified, uncomplicated; Z89.432 Acquired absence of left foot
CPT/HCPCS: 99285; 82075; 36415; 80048; 82009; 85025; 80306; G0480; 80320

== ENCOUNTER 2019-02-09 20:29 | Emergency (ER) | payer OTHER ==
[2019-02-09] MEDS ORDERED: SODIUM CHLORIDE 0.9% 1,000 ML IV STA (20:38)
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
[2019-02-09 21:17] LABS: Basophils # (A) 0.1 k/uL (0-0.2); Basophils % (A) 2 %; Eosinophils # (A) 0.3 k/uL (0-0.7); Eosinophils % (A) 3 %; HCT 44.8 % (39.0-53.0); HGB 14.5 gm/dL (13.0-17.5); Lymphocytes # (A) 2.7 k/uL (1.0-4.8); Lymphocytes % (A) 36 %; MCH 31.3 pg (25.0-35.0); MCHC 32.3 g/dL (31.0-37.0); MCV 96.8 fL (80.0-100.0); Mean Platelet Volume 6.3; Monocytes # (A) 0.6 k/uL (0-1.0); Monocytes % (A) 7 %; Neutrophils # (A) 3.7 k/uL (1.3-7.7); Neutrophils % (A) 49 %; Platelet Count 316 k/uL (150-450); RBC 4.63 m/uL (4.30-5.90); WBC 7.6 k/uL (3.8-10.6)
[2019-02-09 21:21] LABS: ALT 56 U/L (21-72); AST 55 U/L (17-59); Acetaminophen <10.0 ug/mL; African American GFR (CKD) 77 (>60 ml/min/1.73 sqM); Albumin 4.6 g/dL (3.5-5.0); Alcohol <10 mg/dL; Alkaline Phosphatase 112 U/L (38-126); Anion Gap 13 mmol/L; Blood Urea Nitrogen 18 mg/dL (9-20); Calcium 9.7 mg/dL (8.4-10.2); Carbon Dioxide 23 mmol/L (22-30); Chloride 105 mmol/L (98-107); Glucose 71 mg/dL (74-99); Potassium 3.7 mmol/L (3.5-5.1); Salicylate <1.0 mg/dL; Sodium 141 mmol/L (137-145); Total Bilirubin 0.6 mg/dL (0.2-1.3); Total Protein 8.5 g/dL (6.3-8.2)
[2019-02-09 21:31] LABS: Amphetamine Screen,Urine Not Detected (NotDetected); Barbiturate Screen,Urine Not Detected (NotDetected); Benzodiazepines Screen,Urine Detected (NotDetected); Cocaine Screen,Urine Detected (NotDetected); Methadone Screen, Urine Not Detected (NotDetected); Opiate Screen,Urine Not Detected (NotDetected); Oxycodone Screen, Urine Not Detected (NotDetected); Phencyclidine Screen,Urine Not Detected (NotDetected); Tricyclic Antidepressant,Urine Not Detected (NotDetected); Urn Cannabinoid Scrn Detected (NotDetected)
[2019-02-09 22:14] VITALS: RESP 18
[2019-02-09 22:40] VITALS: BP 145/88; PULSE 91; TEMP 98
== END 2019-02-09 23:02 | disposition home or self-care (01) ==
LOC: EC 20:29
DX: R45.851 Suicidal ideations (principal); Z59.0 Homelessness; R09.02 Hypoxemia; F31.9 Bipolar disorder, unspecified; F41.9 Anxiety disorder, unspecified; F17.200 Nicotine dependence, unspecified, uncomplicated
CPT/HCPCS: 82075; 36415; 93005; 80053; 83605; 85025; 80306; 83520; 99285; 96360; G0480 ×2; 80320; 80329

== ENCOUNTER 2019-02-10 | Emergency (ER) | payer OTHER ==
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
== END 2019-02-10 12:46 | disposition home or self-care (01) ==
CPT/HCPCS: 82075; 99285

== ENCOUNTER 2019-07-23 01:46 | Inpatient (IN) | payer MEDICAID, OTHER ==
[2019-07-23 02:36] LABS: Glucose,Whole Blood 115 mg/dL (75-99)
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
[2019-07-23 04:00] LABS: Basophils # (A) 0.1 k/uL (0-0.2); Basophils % (A) 2 %; Eosinophils # (A) 0.2 k/uL (0-0.7); Eosinophils % (A) 3 %; HCT 43.1 % (39.0-53.0); HGB 14.1 gm/dL (13.0-17.5); Lymphocytes # (A) 2.5 k/uL (1.0-4.8); Lymphocytes % (A) 33 %; MCH 31.1 pg (25.0-35.0); MCHC 32.8 g/dL (31.0-37.0); MCV 94.6 fL (80.0-100.0); Mean Platelet Volume 6.9; Monocytes # (A) 0.5 k/uL (0-1.0); Monocytes % (A) 6 %; Neutrophils # (A) 4.1 k/uL (1.3-7.7); Neutrophils % (A) 53 %; Platelet Count 296 k/uL (150-450); RBC 4.55 m/uL (4.30-5.90); RDW 15.5 % (11.5-15.5); WBC 7.7 k/uL (3.8-10.6)
[2019-07-23 04:19] LABS: ALT 27 U/L (4-49); AST 33 U/L (17-59); Acetaminophen <10.0 ug/mL; African American GFR (CKD) >90 (>60 ml/min/1.73 sqM); Albumin 4.3 g/dL (3.5-5.0); Alcohol <10 mg/dL; Alkaline Phosphatase 112 U/L (38-126); Anion Gap 12 mmol/L; Blood Urea Nitrogen 14 mg/dL (9-20); Calcium 9.2 mg/dL (8.4-10.2); Carbon Dioxide 21 mmol/L (22-30); Chloride 109 mmol/L (98-107); Glucose 116 mg/dL (74-99); Non-African American GFR(CKD) 82 (>60 ml/min/1.73 sqM); Potassium 3.9 mmol/L (3.5-5.1); Salicylate <1.0 mg/dL; Sodium 142 mmol/L (137-145); Total Bilirubin 0.4 mg/dL (0.2-1.3); Total Protein 7.8 g/dL (6.3-8.2)
[2019-07-23] MEDS ORDERED: MAGNESIUM HYDROXIDE 2,400 MG/10 ML CUP PO PRN (04:35)
[2019-07-23] MEDS ORDERED: MAG HYDROX/AL HYDROX/SIMETH 30 ML CUP PO PRN (04:35)
[2019-07-23] MEDS ORDERED: ACETAMINOPHEN TAB 325 MG TAB PO PRN (04:35)
[2019-07-23] MEDS ORDERED: ZIPRASIDONE 20 MG VIAL IM PRN (04:35)
[2019-07-23] MEDS ORDERED: LORazepam 1 MG TAB PO PRN (04:35)
[2019-07-23 07:36] LABS: Appearance,Urine Clear (Clear); Bilirubin,Urine Negative (Negative); Blood,Urine Negative (Negative); Color,Urine Yellow; Glucose,Urine (UA) Negative (Negative); Ketones,Urine Negative (Negative); Leukocyte Esterase,Urine Negative (Negative); Nitrite,Urine Negative (Negative); PH, Urine 5.5 (5.0-8.0); Protein,Urine Negative (Negative); Specific Gravity,Urine 1.016 (1.001-1.035); Urobilinogen,Urine <2.0 mg/dL (<2.0)
[2019-07-23 07:48] LABS: Amphetamine Screen,Urine Not Detected (NotDetected); Barbiturate Screen,Urine Not Detected (NotDetected); Benzodiazepines Screen,Urine Not Detected (NotDetected); Cocaine Screen,Urine Detected (NotDetected); Methadone Screen, Urine Not Detected (NotDetected); Opiate Screen,Urine Not Detected (NotDetected); Oxycodone Screen, Urine Not Detected (NotDetected); Phencyclidine Screen,Urine Not Detected (NotDetected); Tricyclic Antidepressant,Urine Not Detected (NotDetected); Urn Cannabinoid Scrn Detected (NotDetected)
[2019-07-23 08:08] LABS: Glucose,Whole Blood 136 mg/dL (75-99)
[2019-07-23 09:28] LABS: Basophils # (A) 0.1 k/uL (0-0.2); Basophils % (A) 1 %; Eosinophils # (A) 0.2 k/uL (0-0.7); Eosinophils % (A) 3 %; HCT 38.1 % (39.0-53.0); HGB 12.6 gm/dL (13.0-17.5); Lymphocytes # (A) 2.3 k/uL (1.0-4.8); Lymphocytes % (A) 33 %; MCH 31.7 pg (25.0-35.0); MCHC 33.2 g/dL (31.0-37.0); MCV 95.6 fL (80.0-100.0); Mean Platelet Volume 7.6; Monocytes # (A) 0.6 k/uL (0-1.0); Monocytes % (A) 8 %; Neutrophils # (A) 3.6 k/uL (1.3-7.7); Neutrophils % (A) 52 %; Platelet Count 264 k/uL (150-450); RBC 3.99 m/uL (4.30-5.90); RDW 15.4 % (11.5-15.5); WBC 7.1 k/uL (3.8-10.6)
[2019-07-23 09:52] LABS: ALT 25 U/L (4-49); AST 33 U/L (17-59); African American GFR (CKD) >90 (>60 ml/min/1.73 sqM); Albumin 3.9 g/dL (3.5-5.0); Alkaline Phosphatase 97 U/L (38-126); Anion Gap 9 mmol/L; Bilirubin, Delta 0.2 mg/dL (0.0-0.2); Bilirubin,Unconjugated 0.4 mg/dL (0.0-1.1); Blood Urea Nitrogen 17 mg/dL (9-20); Calcium 8.9 mg/dL (8.4-10.2); Carbon Dioxide 26 mmol/L (22-30); Chloride 108 mmol/L (98-107); Cholesterol 187 mg/dL (<200); Glucose 149 mg/dL (74-99); HDL Cholesterol 45 mg/dL (40-60); LDL Cholesterol,Calculated 97 mg/dL (0-99); Non-African American GFR(CKD) 85 (>60 ml/min/1.73 sqM); Potassium 3.9 mmol/L (3.5-5.1); Sodium 143 mmol/L (137-145); Total Bilirubin 0.6 mg/dL (0.2-1.3); Total Protein 7.2 g/dL (6.3-8.2); Triglycerides 227 mg/dL (<150)
[2019-07-23] MEDS: NICOTINE 14MG/24HR PATCH TRANSDERM SCH (10:32)
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
[2019-07-23 12:52] LABS: Glucose,Whole Blood 126 mg/dL (75-99)
[2019-07-23] MEDS ORDERED: cloNIDine HCL 0.1 MG TAB PO PRN (13:25)
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
[2019-07-23] MEDS: cloNIDine HCL 0.1 MG TAB PO SCH ×2 (14:09→21:49)
[2019-07-23 18:02] LABS: Glucose,Whole Blood 128 mg/dL (75-99)
[2019-07-23] MEDS: INSULIN ASPART (NovoLOG) 100 UNIT/ML VIAL SQ SCH ×2 (18:02→20:21)
[2019-07-23 19:34] LABS: Hemoglobin A1C 5.7 % (4.0-6.0)
[2019-07-23 20:04] LABS: Glucose,Whole Blood 128 mg/dL (75-99)
[2019-07-24 07:54] LABS: Glucose,Whole Blood 120 mg/dL (75-99)
[2019-07-24] MEDS: INSULIN ASPART (NovoLOG) 100 UNIT/ML VIAL SQ SCH ×4 (08:06→22:22)
[2019-07-24] MEDS: NICOTINE 14MG/24HR PATCH TRANSDERM SCH (08:43)
[2019-07-24] MEDS: cloNIDine HCL 0.1 MG TAB PO SCH ×2 (08:45→22:23)
--- NOTE | 2019-07-24 09:56 | P.PN ---
Progress Note - Text Interval history: The patient is found in his room he follows me to an interview room. He indicates that he had been in [place] several weeks ago he does return to town 2 weeks ago. He had been "floating" in terms of residence. He states his mood is depressed he's having suicidal thoughts off and on. He had been off of his psychotropic medication for 1-2 months. He admits that he relapsed with cocaine and marijuana. He continues to feel that the Lexapro is a beneficial medication and he would like to have that restarted. He was previous he taking 20 mg we will initiate at 10 mg and titrate. We reviewed his other medical medications he states he typically takes metformin and aspirin and simvastatin. Blood sugars are reviewed they've been running in the 120s. Mental status exam: The patient is an alert -Norwegian male appearing his stated age. He is overweight he is mobile with a wheelchair. He is dressed in hospital gowns which are stained with food. He is malodorous. Eye contact is appropriate speech is fluent spontaneous nonpressured. He reports a depressed mood with suicidal ideation. He feels safe in the hospital. He reports no homicidal ideation intent or plan. He reports no auditory or visual hallucinations or any specific delusions. There is no observed evidence of psychosis. He demonstrates no tangential thinking loose associations or flight of ideas. He does not appear hypomanic or manic. He is fully oriented. Plan: The patient will be started on the left for 10 mg daily we may titrate this further we will restart his metformin aspirin and Lipitor in place of Zocor. He is instructed to attend groups we will monitor him for safety. There is no evidence of alcohol withdrawal at this point. We will monitor him further. Vital signs reviewed. I expect he'll be appropriate for discharge towards the end of the week. He plans on residing at the local [facility] for 4 weeks and then he plans to relocate to [place] with his son.
[2019-07-24] MEDS: MULTIVITAMINS, THERA 1 EACH TAB PO SCH (10:31)
[2019-07-24] MEDS: ESCITALOPRAM 10 MG TAB PO SCH (10:31)
[2019-07-24] MEDS: ASPIRIN 81 MG PO SCH (10:31)
[2019-07-24 12:47] LABS: Glucose,Whole Blood 110 mg/dL (75-99)
[2019-07-24 17:52] LABS: Glucose,Whole Blood 125 mg/dL (75-99)
[2019-07-24] MEDS: metFORMIN 500 MG TAB PO SCH (18:17)
[2019-07-24 20:18] LABS: Glucose,Whole Blood 137 mg/dL (75-99)
[2019-07-24] MEDS: ATORVASTATIN 20 MG TAB PO SCH (22:23)
[2019-07-25] MEDS: INSULIN ASPART (NovoLOG) 100 UNIT/ML VIAL SQ SCH ×4 (07:30→20:23)
[2019-07-25 07:49] LABS: Glucose,Whole Blood 125 mg/dL (75-99)
[2019-07-25] MEDS: MULTIVITAMINS, THERA 1 EACH TAB PO SCH (09:37)
[2019-07-25] MEDS: metFORMIN 500 MG TAB PO SCH ×2 (09:37→18:07)
[2019-07-25] MEDS: cloNIDine HCL 0.1 MG TAB PO SCH ×2 (09:37→21:10)
[2019-07-25] MEDS: ASPIRIN 81 MG PO SCH (09:37)
[2019-07-25] MEDS: NICOTINE 14MG/24HR PATCH TRANSDERM SCH (09:38)
[2019-07-25] MEDS: ESCITALOPRAM 10 MG TAB PO SCH (09:38)
--- NOTE | 2019-07-25 09:48 | P.PN ---
Progress Note - Text Interval history: The patient is found in his room he prefers to speak there. He states that his mood is improving. He was able to rest he slept well last evening. He states he plans on attending some groups today. He has no questions or concerns regarding the Lexapro. Appetite is stable. He feels that he is stabilizing on the mental health unit. It is his plan to transition to the care home for 4 weeks and then moved to [place]. Mental status exam: The patient is an overweight -Russian male appearing his stated age. He is dressed in hospital gowns hygiene is improved. He is lying in bed eye contact is appropriate. He has spontaneous speech. He is pleasant and cooperative. He is reporting no acute suicidal ideation intent or plan or homicidal ideation intent or plan. He is reporting no auditory or visual hallucinations or any specific delusions. There is no observed evidence of psychosis hypomania or mable. Insight and judgment improving. He is oriented to person place and date. Affect is appropriately expresses. Plan: The patient is clinically stabilizing. He may be appropriate for discharge in the next 1-2 days. We will consider titrating the Lexapro further. He is encouraged to fully participate in the milieu. Vital signs and blood sugar values reviewed.
[2019-07-25 12:49] LABS: Glucose,Whole Blood 94 mg/dL (75-99)
[2019-07-25 17:47] LABS: Glucose,Whole Blood 114 mg/dL (75-99)
[2019-07-25 20:08] LABS: Glucose,Whole Blood 128 mg/dL (75-99)
[2019-07-25] MEDS: ATORVASTATIN 20 MG TAB PO SCH ×2 (21:09→21:10)
[2019-07-26 06:36] VITALS: BP 119/57; PULSE 64; RESP 15; TEMP 98.5
[2019-07-26 08:14] LABS: Glucose,Whole Blood 110 mg/dL (75-99)
[2019-07-26] MEDS: INSULIN ASPART (NovoLOG) 100 UNIT/ML VIAL SQ SCH (08:19)
[2019-07-26] MEDS: ESCITALOPRAM 10 MG TAB PO SCH (08:31)
[2019-07-26] MEDS: metFORMIN 500 MG TAB PO SCH (08:31)
[2019-07-26] MEDS: cloNIDine HCL 0.1 MG TAB PO SCH (08:31)
[2019-07-26] MEDS: MULTIVITAMINS, THERA 1 EACH TAB PO SCH (08:31)
[2019-07-26] MEDS: ASPIRIN 81 MG PO SCH (08:31)
[2019-07-26] MEDS: NICOTINE 14MG/24HR PATCH TRANSDERM SCH (08:32)
--- NOTE | 2019-07-26 09:20 | P.DS ---
Providers Date of admission: 07/23/19 04:28 Expected date of discharge: 07/26/19 Attending physician: Salazar Sellers Consults: 07/23/19 04:35 Consult Physician Routine Consulting Provider: Micki Courtney Consult Reason/Comments: Medical H and P Do you want consulting provider notified?: Yes Primary care physician: Flakita Ramosumar - Discharge Diagnosis(es) (1) Major depressive disorder, recurrent severe without psychotic features Current Visit: Yes Status: Acute Priority: High (2) Alcohol use disorder, moderate, dependence Current Visit: Yes Status: Acute Priority: Medium (3) Cocaine use disorder, moderate, dependence Current Visit: Yes Status: Acute Priority: Medium (4) Cannabis use disorder, mild, abuse Current Visit: Yes Status: Acute Priority: Low Hospital Course: Brief summary of admission note: This patient is a 58-year-old -Citizen Of [place] male who was admitted to the mental health unit through the emergency room for suicidal ideation. He states he had thoughts of overdosing on his medication. He carries a diagnosis of major depressive disorder and also presented with cocaine and marijuana in his drug screen. The patient reported feeling overwhelmed and needed help. He had been off of his psychotropic medication. For full details please refer to my psychiatric evaluation dated 07/23/2019. Summary of hospital course: The patient was admitted to the mental health unit voluntarily. We reviewed his presenting symptoms and treatment options. He was restarted on Lexapro 10 mg daily with a plan of titrating to 20 mg. He was restarted on his other medical medications for hyperlipidemia diabetes and hypertension. He was seen by internal medicine for routine history and physical exam. 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 The patient was partially cooperative with group attendance. The patient refused my initial attempt to complete a psychiatric evaluation. He was more compliant subsequent days. He has noted a complete resolution of any suicidal ideation. We discussed the possibility of inpatient chemical dependency treatment but he refuses. He does not wish to have any medication prescribed to address his substance use. His plan is to go to the prison for the next 4 weeks and he plans to promptly moved to [place] to be with his son after that. Mental status exam: The patient is an overweight -Citizen Of [place] male appearing his stated age. He is dressed in hospital attire. Hygiene and grooming have improved. Speech is fluent spontaneous nonpressured. Affect is brighter he reports his mood is better he reports no hopelessness thinking he reports no suicidal ideation intent or plan. He reports no homicidal ideation intent or plan. He describes no auditory or visual hallucinations or any specific delusions there is no observed evidence of psychosis. He demonstrates no tangential thinking this associations or flight of ideas he does not appear hypomanic or manic. He demonstrates no verbal or physical aggressiveness or any involuntary repetitive movements. He remains oriented to person place and date. He demonstrates future oriented thinking specifically describes how he will travel to [place] in what his plans will be once he arrives. Impressions 1. Major depressive disorder recurrent severe without psychosis, alcohol use disorder moderate, cocaine use disorder moderate, cannabis use disorder mild Plan: The patient will be discharged mental health unit today he plans to reside at the local prison until he relocates to [place] in 4 weeks. We will t itrate the Lexapro to 20 mg daily. He does not wish to attend inpatient chemical dependency treatment. He does not wish to have naltrexone prescribed. At this time there is no imminent safety risk he is appropriate for transition to outpatient care. He will follow up with community mental health. He is instructed return to the hospital any acute safety concerns. He is instructed to abstain from any use of alcohol marijuana or any illicit drugs as these will precipitate mood symptoms and elevate his safety risk. Patient Condition at Discharge: Stable Plan - Discharge Summary New Discharge Prescriptions: New Nicotine 14Mg/24Hr Patch [Habitrol] 1 patch TRANSDERM DAILY #14 patch Continue Aspirin EC [Ecotrin Low Dose] 81 mg PO DAILY #30 tablet. Escitalopram [Lexapro] 20 mg PO DAILY #30 tab metFORMIN HCL 1,000 mg PO BID #60 tablet Multivitamins, Thera [Multivitamin (formulary)] 1 tab PO DAILY #30 tab Cholecalciferol (Vitamin D3) [Vitamin D3] 2,000 unit PO DAILY #30 capsule Lisinopril [Zestril] 5 mg PO DAILY #30 tab Simvastatin [Zocor] 40 mg PO HS #30 tab Discontinued ARIPiprazole [Abilify] 10 mg PO DAILY #14 tab Insulin Glargine [Lantus] 50 unit SQ HS Insulin Glulisine [Apidra] 12 unit SQ AC-TID Discharge Medication List Aspirin EC [Ecotrin Low Dose] 81 mg PO DAILY #30 tablet. 07/26/19 [Rx] Cholecalciferol (Vitamin D3) [Vitamin D3] 2,000 unit PO DAILY #30 capsule 07/26/19 [Rx] Escitalopram [Lexapro] 20 mg PO DAILY #30 tab 07/26/19 [Rx] Lisinopril [Zestril] 5 mg PO DAILY #30 tab 07/26/19 [Rx] Multivitamins, Thera [Multivitamin (formulary)] 1 tab PO DAILY #30 tab 07/26/19 [Rx] Nicotine 14Mg/24Hr Patch [Habitrol] 1 patch TRANSDERM DAILY #14 patch 07/26/19 [Rx] Simvastatin [Zocor] 40 mg PO HS #30 tab 07/26/19 [Rx] metFORMIN HCL 1,000 mg PO BID #60 tablet 07/26/19 [Rx] Follow up Appointment(s)/Referral(s): Flakita Pimentel MD [Primary Care Provider] - 1-2 days Patient Instructions/Handouts: Depression (DC), Hallucinations (ED), Suicide Prevention (DC) Activity/Diet/Wound Care/Special Instructions: Activity and diet as tolerated. Avoid the use of street drugs and alcohol. Take all medications as prescribed. When you are in need of refills on your medications please contact your medical provider and/or outpatient psychiatrist to have this done. Please go to scheduled outpatient appointment for aftercare t reatment. If symptoms return or become worse, call the crisis line at and/or go to the nearest emergency room for evaluation.
== END 2019-07-26 11:48 | disposition home or self-care (01) | DRG 885 ==
LOC: EC 01:46 → 3MHU 04:28
PROVIDERS: ADMIT Psychiatry & Neurology Psychiatry; ATTEND Psychiatry & Neurology Psychiatry
DX: F33.2 Major depressive disorder, recurrent severe without psychotic features (principal); F14.20 Cocaine dependence, uncomplicated; R45.851 Suicidal ideations; E11.9 Type 2 diabetes mellitus without complications; D64.9 Anemia, unspecified; E78.1 Pure hyperglyceridemia; E66.9 Obesity, unspecified; F10.20 Alcohol dependence, uncomplicated; F12.10 Cannabis abuse, uncomplicated; F41.9 Anxiety disorder, unspecified; G89.4 Chronic pain syndrome; I10 Essential (primary) hypertension; Z68.35 Body mass index [BMI] 35.0-35.9, adult; M20.62 Acquired deformities of toe(s), unspecified, left foot; Z91.5 Personal history of self-harm; F17.210 Nicotine dependence, cigarettes, uncomplicated; Z71.6 Tobacco abuse counseling; Z79.82 Long term (current) use of aspirin; Z79.4 Long term (current) use of insulin; Z79.899 Other long term (current) drug therapy; Z59.0 Homelessness; Z87.11 Personal history of peptic ulcer disease; E78.5 Hyperlipidemia, unspecified; F10.10 Alcohol abuse, uncomplicated
CPT/HCPCS: 36415; 80053; 80061; 80306; 80320; 80329; 81003; 82075; 82248; 83036; 83520; 84443; 85025; 99285

== ENCOUNTER 2019-07-28 11:53 | Emergency (ER) | payer OTHER ==
[2019-07-28 12:11] VITALS: RESP 18; TEMP 98.5
[2019-07-28 12:14] LABS: Glucose,Whole Blood 141 mg/dL (75-99)
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
[2019-07-28 13:31] LABS: Basophils # (A) 0.2 k/uL (0-0.2); Basophils % (A) 2 %; Eosinophils # (A) 0.2 k/uL (0-0.7); Eosinophils % (A) 2 %; HCT 44.7 % (39.0-53.0); HGB 14.9 gm/dL (13.0-17.5); Lymphocytes # (A) 1.7 k/uL (1.0-4.8); Lymphocytes % (A) 24 %; MCH 31.4 pg (25.0-35.0); MCHC 33.3 g/dL (31.0-37.0); MCV 94.3 fL (80.0-100.0); Mean Platelet Volume 7.1; Monocytes # (A) 0.4 k/uL (0-1.0); Monocytes % (A) 6 %; Neutrophils # (A) 4.5 k/uL (1.3-7.7); Neutrophils % (A) 63 %; Platelet Count 336 k/uL (150-450); RBC 4.74 m/uL (4.30-5.90); RDW 15.3 % (11.5-15.5); WBC 7.1 k/uL (3.8-10.6)
[2019-07-28 13:42] LABS: ALT 39 U/L (4-49); AST 37 U/L (17-59); African American GFR (CKD) >90 (>60 ml/min/1.73 sqM); Albumin 4.5 g/dL (3.5-5.0); Alkaline Phosphatase 116 U/L (38-126); Anion Gap 12 mmol/L; Blood Urea Nitrogen 21 mg/dL (9-20); Calcium 9.6 mg/dL (8.4-10.2); Carbon Dioxide 23 mmol/L (22-30); Chloride 102 mmol/L (98-107); Glucose 185 mg/dL (74-99); Non-African American GFR(CKD) >90 (>60 ml/min/1.73 sqM); Potassium 3.9 mmol/L (3.5-5.1); Sodium 137 mmol/L (137-145); Total Bilirubin 1.1 mg/dL (0.2-1.3); Total Protein 8.1 g/dL (6.3-8.2)
[2019-07-28 19:00] VITALS: BP 128/79; PULSE 78
[2019-07-28 19:00] LABS: Appearance,Urine Clear (Clear); Bilirubin,Urine Negative (Negative); Blood,Urine Negative (Negative); Color,Urine Yellow; Glucose,Urine (UA) Negative (Negative); Ketones,Urine 1+ (Negative); Leukocyte Esterase,Urine Negative (Negative); Nitrite,Urine Negative (Negative); PH, Urine 5.5 (5.0-8.0); Protein,Urine Trace (Negative); Specific Gravity,Urine 1.026 (1.001-1.035)
[2019-07-28 19:18] LABS: Amphetamine Screen,Urine Not Detected (NotDetected); Barbiturate Screen,Urine Not Detected (NotDetected); Benzodiazepines Screen,Urine Not Detected (NotDetected); Cocaine Screen,Urine Detected (NotDetected); Methadone Screen, Urine Not Detected (NotDetected); Opiate Screen,Urine Not Detected (NotDetected); Oxycodone Screen, Urine Not Detected (NotDetected); Phencyclidine Screen,Urine Not Detected (NotDetected); Tricyclic Antidepressant,Urine Not Detected (NotDetected); Urn Cannabinoid Scrn Not Detected (NotDetected)
[2019-07-29 11:43] LABS: Urine Alcohol Negative (Negative); Urine Barbiturate Negative (Negative); Urine Cocaine Positive (Negative); Urine Methadone Negative (Negative); Urine Opiates Negative (Negative); Urine Phencyclidine Negative (Negative)
== END 2019-07-28 21:36 | disposition other institution (70) ==
LOC: EC 11:53
DX: F32.9 Major depressive disorder, single episode, unspecified (principal); F10.239 Alcohol dependence with withdrawal, unspecified; R45.851 Suicidal ideations; Z59.0 Homelessness; E11.9 Type 2 diabetes mellitus without complications; I10 Essential (primary) hypertension; F17.200 Nicotine dependence, unspecified, uncomplicated; Z79.4 Long term (current) use of insulin
CPT/HCPCS: 36415; 80053; 80306; 81003; 82075; 85025; 99285

== ENCOUNTER 2019-10-09 04:40 | Inpatient (IN) | payer MEDICAID, OTHER ==
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
[2019-10-09 05:33] LABS: Glucose,Whole Blood 77 mg/dL (75-99)
[2019-10-09] MEDS ORDERED: ACETAMINOPHEN TAB 325 MG TAB PO PRN (07:03)
[2019-10-09] MEDS ORDERED: MAGNESIUM HYDROXIDE 2,400 MG/10 ML CUP PO PRN (07:03)
[2019-10-09] MEDS ORDERED: MAG HYDROX/AL HYDROX/SIMETH 30 ML CUP PO PRN (07:03)
[2019-10-09 07:36] LABS: Amphetamine Screen,Urine Not Detected (NotDetected); Barbiturate Screen,Urine Not Detected (NotDetected); Benzodiazepines Screen,Urine Not Detected (NotDetected); Cocaine Screen,Urine Detected (NotDetected); Methadone Screen, Urine Not Detected (NotDetected); Opiate Screen,Urine Not Detected (NotDetected); Oxycodone Screen, Urine Not Detected (NotDetected); Phencyclidine Screen,Urine Not Detected (NotDetected); Tricyclic Antidepressant,Urine Not Detected (NotDetected); Urn Cannabinoid Scrn Not Detected (NotDetected)
[2019-10-09 07:47] LABS: Glucose,Whole Blood 125 mg/dL (75-99)
[2019-10-09 08:36] LABS: Basophils # (A) 0.2 k/uL (0-0.2); Basophils % (A) 2 %; Eosinophils # (A) 0.2 k/uL (0-0.7); Eosinophils % (A) 2 %; HCT 43.4 % (39.0-53.0); HGB 14.6 gm/dL (13.0-17.5); Lymphocytes # (A) 2.5 k/uL (1.0-4.8); Lymphocytes % (A) 25 %; MCH 31.5 pg (25.0-35.0); MCHC 33.6 g/dL (31.0-37.0); MCV 93.8 fL (80.0-100.0); Mean Platelet Volume 6.8; Monocytes # (A) 0.7 k/uL (0-1.0); Monocytes % (A) 7 %; Neutrophils # (A) 6.1 k/uL (1.3-7.7); Neutrophils % (A) 61 %; Platelet Count 354 k/uL (150-450); RBC 4.63 m/uL (4.30-5.90); RDW 13.3 % (11.5-15.5)
[2019-10-09] MEDS: INSULIN ASPART (NovoLOG) 100 UNIT/ML VIAL SQ SCH ×4 (08:38→20:10)
[2019-10-09] MEDS: CHOLECALCIFEROL 1,000 UNIT TAB PO SCH (08:41)
[2019-10-09] MEDS: ESCITALOPRAM 20 MG TAB PO SCH (08:41)
[2019-10-09] MEDS: metFORMIN 500 MG TAB PO SCH ×2 (08:41→20:12)
[2019-10-09] MEDS: MULTIVITAMINS, THERA 1 EACH TAB PO SCH (08:41)
[2019-10-09] MEDS: LISINOPRIL 5 MG TAB PO SCH (08:41)
[2019-10-09] MEDS: NICOTINE 14MG/24HR PATCH TRANSDERM SCH ×2 (08:41→08:51)
[2019-10-09] MEDS: ASPIRIN 81 MG PO SCH (08:41)
[2019-10-09 08:48] LABS: Albumin 4.3 g/dL (3.5-5.0); Calcium 9.2 mg/dL (8.4-10.2); Total Bilirubin 0.4 mg/dL (0.2-1.3); Total Protein 7.9 g/dL (6.3-8.2)
[2019-10-09] MEDS ORDERED: LORazepam 1 MG TAB PO PRN (08:57)
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
[2019-10-09 12:45] LABS: Glucose,Whole Blood 98 mg/dL (75-99)
[2019-10-09] MEDS ORDERED: NAPROXEN 250 MG TAB PO PRN (13:51)
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
[2019-10-09 17:45] LABS: Glucose,Whole Blood 114 mg/dL (75-99)
[2019-10-09 20:06] LABS: Glucose,Whole Blood 140 mg/dL (75-99)
[2019-10-09] MEDS: ATORVASTATIN 20 MG TAB PO SCH (20:11)
[2019-10-09] MEDS: FAMOTIDINE 20 MG TAB PO SCH (20:11)
[2019-10-09 20:44] LABS: Hemoglobin A1C 6.2 % (4.0-6.0)
[2019-10-10 07:50] LABS: Glucose,Whole Blood 91 mg/dL (75-99)
[2019-10-10] MEDS: INSULIN ASPART (NovoLOG) 100 UNIT/ML VIAL SQ SCH ×4 (08:00→20:25)
[2019-10-10] MEDS: ASPIRIN 81 MG PO SCH (08:01)
[2019-10-10] MEDS: metFORMIN 500 MG TAB PO SCH ×2 (08:01→20:34)
[2019-10-10] MEDS: MULTIVITAMINS, THERA 1 EACH TAB PO SCH (08:01)
[2019-10-10] MEDS: ESCITALOPRAM 20 MG TAB PO SCH (08:01)
[2019-10-10] MEDS: FAMOTIDINE 20 MG TAB PO SCH ×2 (08:01→20:33)
[2019-10-10] MEDS: LISINOPRIL 5 MG TAB PO SCH ×2 (08:01→08:06)
[2019-10-10] MEDS: NICOTINE 14MG/24HR PATCH TRANSDERM SCH (08:01)
[2019-10-10] MEDS: CHOLECALCIFEROL 1,000 UNIT TAB PO SCH (08:01)
--- NOTE | 2019-10-10 11:24 | P.PN ---
Progress Note - Text Interval history: The patient is found in his room he does follow me to an interview room. He indicates that his mood is been depressed he reports having suicidal thoughts but feels safe in the hospital. He has not been attending groups he did go down to breakfast. He states he plans on showering later this morning. We reviewed his psychotropic medication. He states that he was recently hospitalized in [place] and he states that he does better with Cymbalta and Remeron than he does with the Lexapro. We reviewed all of his recent hospitalizations. We discussed his lack of participation in his treatment. He has not been following up with outpatient care he has not been consistently taking medications and he continues to abuse alcohol and cocaine. We discussed inpatient chemical dependency treatment and he states he will give that consideration. Mental status exam: The patient's an overweight -[place] male appearing his stated age. He is mobile with a wheelchair he is a disheveled appearance hygiene is impaired. Eye contact is intermittent speech is fluent spontaneous nonpressured. He describes a depressed mood with hopelessness thinking he reports ongoing suicidal ideation. He reports no homicidal ideation intent or plan. He is reporting no auditory or visual hallucinations or any specific delusions. There is no observed evidence of psychosis. He demonstrates no tangential thinking loose associations or flight of ideas he demonstrates no verbal or physical aggressiveness. Insight and judgment limited. He is oriented to person place and date. Plan: The patient will be started on Cymbalta 30 mg daily starting tomorrow we will discontinue the Lexapro. We will initiate Remeron 15 mg at bedtime. Social work will give the patient the number for access and he is instructed to call today to begin arrangements for inpatient chemical dependency treatment. He is encouraged to participate in groups. We will monitor him for safety. Vital signs reviewed.
[2019-10-10 12:26] LABS: Glucose,Whole Blood 94 mg/dL (75-99)
[2019-10-10 17:10] LABS: Glucose,Whole Blood 111 mg/dL (75-99)
[2019-10-10 20:17] LABS: Glucose,Whole Blood 131 mg/dL (75-99)
[2019-10-10] MEDS: ATORVASTATIN 20 MG TAB PO SCH (20:33)
[2019-10-10] MEDS: MIRTAZAPINE 15 MG TAB PO SCH (20:34)
[2019-10-11 07:54] LABS: Glucose,Whole Blood 105 mg/dL (75-99)
[2019-10-11] MEDS: INSULIN ASPART (NovoLOG) 100 UNIT/ML VIAL SQ SCH ×4 (08:23→20:46)
[2019-10-11] MEDS: CHOLECALCIFEROL 1,000 UNIT TAB PO SCH (08:37)
[2019-10-11] MEDS: LISINOPRIL 5 MG TAB PO SCH (08:37)
[2019-10-11] MEDS: FAMOTIDINE 20 MG TAB PO SCH ×2 (08:37→20:45)
[2019-10-11] MEDS: metFORMIN 500 MG TAB PO SCH ×2 (08:37→20:45)
[2019-10-11] MEDS: MULTIVITAMINS, THERA 1 EACH TAB PO SCH (08:37)
[2019-10-11] MEDS: DULoxetine HCL 30 MG CAPSULE.DR PO SCH (08:37)
[2019-10-11] MEDS: NICOTINE 14MG/24HR PATCH TRANSDERM SCH (08:38)
[2019-10-11] MEDS: ASPIRIN 81 MG PO SCH (08:38)
--- NOTE | 2019-10-11 09:25 | P.PN ---
Progress Note - Text Interval history: The patient is found in his room he follows me to the [facility] to speak. He states that he slept better with the [facility] staff recorded he slept 5 hours. He indicates he attended 3 groups yesterday. He states he did not call the access line but was told to call [facility] directly on Monday for placement. We will have to verify this through social work. We reviewed his psychotropic medications his questions were answered. He reports a depressed mood he reports suicidal thoughts "off-and-on". Mental status exam: The patient is an alert -[place] Zeal[place] male appearing his stated age. He is dressed in hospital attire. He is mobile with a wheelchair. Eye contact is appropriate speech is fluent spontaneous brief. He demonstrates no tangential thinking loose associations or flight of ideas. Affect is brighter than yesterday. He reports some hopelessness thinking still he states suicidal thoughts are "off-and-on". He reports feeling safe in the hospital. He is reporting no homicidal ideation intent or plan. No evidence of any auditory or visual hallucinations or any specific delusions. He demonstrates no verbal or physical aggressiveness he demonstrates no involuntary movements. Insight and judgment limited. He is oriented to person place and date. Plan: The patient will continue on his current psychotropic medications our plan will be to titrate the Cymbalta 60 mg daily in the next few days. We will clarify the process for him getting accepted to [facility] and make transportation arrangements. Vital signs reviewed. See with scores have been 0. No use of Ativan needed. He is encouraged to fully participate in the milieu.
[2019-10-11 12:46] LABS: Glucose,Whole Blood 100 mg/dL (75-99)
[2019-10-11 17:31] LABS: Glucose,Whole Blood 123 mg/dL (75-99)
[2019-10-11 20:45] LABS: Glucose,Whole Blood 114 mg/dL (75-99)
[2019-10-11] MEDS: MIRTAZAPINE 15 MG TAB PO SCH (20:45)
[2019-10-11] MEDS: ATORVASTATIN 20 MG TAB PO SCH (20:45)
[2019-10-12 08:00] LABS: Glucose,Whole Blood 108 mg/dL (75-99)
[2019-10-12] MEDS: INSULIN ASPART (NovoLOG) 100 UNIT/ML VIAL SQ SCH ×4 (08:18→20:42)
[2019-10-12] MEDS: metFORMIN 500 MG TAB PO SCH ×2 (08:48→20:43)
[2019-10-12] MEDS: MULTIVITAMINS, THERA 1 EACH TAB PO SCH (08:48)
[2019-10-12] MEDS: FAMOTIDINE 20 MG TAB PO SCH ×2 (08:48→20:43)
[2019-10-12] MEDS: CHOLECALCIFEROL 1,000 UNIT TAB PO SCH (08:48)
[2019-10-12] MEDS: ASPIRIN 81 MG PO SCH (08:49)
[2019-10-12] MEDS: NICOTINE 14MG/24HR PATCH TRANSDERM SCH (08:49)
[2019-10-12] MEDS: DULoxetine HCL 30 MG CAPSULE.DR PO SCH (08:49)
[2019-10-12] MEDS: LISINOPRIL 5 MG TAB PO SCH (08:49)
[2019-10-12 12:23] LABS: Glucose,Whole Blood 77 mg/dL (75-99)
[2019-10-12 17:26] LABS: Glucose,Whole Blood 131 mg/dL (75-99)
--- NOTE | 2019-10-12 18:14 | PN ---
PROGRESS NOTE DATE OF SERVICE: 10/12/2019. CHIEF COMPLAINT: The patient had suicide thoughts stating that he was "sick and tired of it all and just wanted to ." He has ongoing use of alcohol and illicit drugs. INTERVAL HISTORY: The patient has been doing fair. He had a quiet evening yesterday. He did not attend groups yesterday. His CIWA score has continued to stage 0. He comes out in the day area some. He will interact a little with others. He slept at 4:00 am last night. Today he has been up. He has attended 2/3 groups. He will socialize some with others. Today when I talked to him, he felt that he was making some progress. He continues to complain about his sleep not being good and was wondering about the increase in medications. He said that he knows on Monday he needs to call for a referral to inpatient substance abuse treatment. He says he is positive about going into a treatment program. He had no other significant complaints. He tolerates his psychotropic medications. MENTAL STATUS EXAM: The patient wheeled himself into the room and also was able to wheel himself completely out of the room at the end of the interview. He gave fair eye contact. Psychomotor activity was slowed. Speech was monotone. He answered questions with brief responses. He did not say a lot. He was not too spontaneous or interactive. His affect was somewhat blunted, though he did show some appropriate emotional response. His mood was reserved, though was difficult to say if he was clearly down or depressed. He did not appear to be significantly distressed. There was no indication of thought disorder. Cognition was clear. ASSESSMENT: I will continue the current diagnosis and treatment plan. I will continue psychotropic medications the same. He has been started on Cymbalta 30 mg a day and Remeron 15 mg a day. In regard to sleep issues, I discussed with the patient that lower doses of Remeron such as 15 mg a day may be a more effective than going up on the medication. I also indicated that if we monitor for another day or 2, we may see results that are not immediately apparent. I discussed that the plan is to titrate up on his Cymbalta and might be consideration to increasing the dose tomorrow or Monday. The patient does say he is motivated to follow through with getting referral for substance abuse treatment. We will focus on stabilization and discharge planning. MMODL / IJN: [id number] /
[2019-10-12 20:19] LABS: Glucose,Whole Blood 115 mg/dL (75-99)
[2019-10-12] MEDS: MIRTAZAPINE 15 MG TAB PO SCH (20:42)
[2019-10-12] MEDS: ATORVASTATIN 20 MG TAB PO SCH (20:42)
[2019-10-13 07:37] LABS: Glucose,Whole Blood 101 mg/dL (75-99)
[2019-10-13] MEDS: INSULIN ASPART (NovoLOG) 100 UNIT/ML VIAL SQ SCH ×4 (08:28→20:45)
[2019-10-13] MEDS: DULoxetine HCL 30 MG CAPSULE.DR PO SCH (10:04)
[2019-10-13] MEDS: FAMOTIDINE 20 MG TAB PO SCH ×2 (10:04→20:45)
[2019-10-13] MEDS: MULTIVITAMINS, THERA 1 EACH TAB PO SCH (10:04)
[2019-10-13] MEDS: metFORMIN 500 MG TAB PO SCH ×2 (10:04→20:45)
[2019-10-13] MEDS: CHOLECALCIFEROL 1,000 UNIT TAB PO SCH (10:04)
[2019-10-13] MEDS: ASPIRIN 81 MG PO SCH (10:04)
[2019-10-13] MEDS: NICOTINE 14MG/24HR PATCH TRANSDERM SCH ×2 (10:05→10:09)
[2019-10-13] MEDS: LISINOPRIL 5 MG TAB PO SCH (10:05)
[2019-10-13 12:39] LABS: Glucose,Whole Blood 93 mg/dL (75-99)
--- NOTE | 2019-10-13 16:00 | PN ---
PROGRESS NOTE DATE OF SERVICE: 10/13/2019. CHIEF COMPLAINT: The patient had suicide thoughts stating that he was "sick and tired of it all and just wanted to ." He has ongoing use of alcohol and illicit drugs. INTERVAL HISTORY: Patient has been doing fair. He had a quiet evening last night. Mostly he keeps to himself. He has spent a fair amount of time in his room. He slept fairly well last night. Today he has been up. He again spends some of the time in his room. It is noteworthy that he attended most groups today so far. He has had zeros for his CIWA scores. He does not have any specific complaints today. He is focused on discharge plans and is positive about his referral for inpatient substance use treatment. He tolerates his psychotropic medications. MENTAL STATUS: Patient was in the day area. He came into the office. He gave fair eye contact. Psychomotor activity was slowed. Speech was monotone. He answered questions with brief responses. He did not say a lot. He was not too spontaneous or interactive. His affect was blunted. His mood was quiet. He did not appear to be significantly distressed. There was no indication of thought disorder. He voiced no thoughts of harm to self or others. Cognition was clear. ASSESSMENT: I will continue the current diagnosis and treatment plan. I will continue psychotropic medications the same. The patient has been showing gradual improvement. It is noteworthy that he has been a little more social today as far as attending groups. We will continue to focus on discharge planning, namely with referral to inpatient substance use treatment. I anticipate the patient being discharged early in the week. MMELENAL / IJN: [id number] /
[2019-10-13 17:11] LABS: Glucose,Whole Blood 113 mg/dL (75-99)
[2019-10-13 20:05] LABS: Glucose,Whole Blood 132 mg/dL (75-99)
[2019-10-13] MEDS: ATORVASTATIN 20 MG TAB PO SCH (20:45)
[2019-10-13] MEDS: MIRTAZAPINE 15 MG TAB PO SCH (20:45)
[2019-10-14 07:40] LABS: Glucose,Whole Blood 107 mg/dL (75-99)
[2019-10-14] MEDS: INSULIN ASPART (NovoLOG) 100 UNIT/ML VIAL SQ SCH ×6 (07:59→20:10)
[2019-10-14] MEDS: DULoxetine HCL 30 MG CAPSULE.DR PO SCH (08:06)
[2019-10-14] MEDS: metFORMIN 500 MG TAB PO SCH ×2 (08:06→20:10)
[2019-10-14] MEDS: CHOLECALCIFEROL 1,000 UNIT TAB PO SCH (08:06)
[2019-10-14] MEDS: LISINOPRIL 5 MG TAB PO SCH (08:06)
[2019-10-14] MEDS: ASPIRIN 81 MG PO SCH (08:06)
[2019-10-14] MEDS: MULTIVITAMINS, THERA 1 EACH TAB PO SCH (08:06)
[2019-10-14] MEDS: FAMOTIDINE 20 MG TAB PO SCH ×2 (08:06→20:10)
[2019-10-14] MEDS: NICOTINE 14MG/24HR PATCH TRANSDERM SCH (08:07)
--- NOTE | 2019-10-14 11:14 | P.PN ---
Progress Note - Text Interval history: The patient is found in his room indicates that his mood is improving. He states suicidal thoughts will" come and go". Overall he feels things are improving during the hospitalization. He did attend one of the groups this morning. He indicates that he did call the access line this morning and he is awaiting a call back. We discussed titrating the Cymbalta to 60 mg daily. He has no objections and has no other questions or concerns. Mental status exam: The patient is an overweight -Algerian male appearing his stated age. He is lying in bed eye contact is appropriate speech is fluent spontaneous nonpressured. He indicates his mood is improving. He reports less frequent suicidal thoughts he is starting to feel more hopeful. He demonstrates future oriented thinking in wanting to go to inpatient chemical dependency treatment. He is reporting no auditory or visual hallucinations or any specific delusions. He demonstrates no verbal or physical aggressiveness he demonstrates no involuntary repetitive movements. There are no signs of any physical distress. Insight and judgment beginning to improve. Affect is constricted. Plan: The patient will continue on his current psychotropic medication. The Cymbalta will be titrated to 60 mg daily. Continue Remeron as written. We will verify that he has called access and we are hoping to arrange discharge to rehab by mid week. Vital signs reviewed. He is encouraged to more fully participate in the milieu.
[2019-10-14 12:20] LABS: Glucose,Whole Blood 132 mg/dL (75-99)
[2019-10-14 13:13] LABS: Glucose,Whole Blood 139 mg/dL (75-99)
[2019-10-14 14:22] LABS: Glucose,Whole Blood 98 mg/dL (75-99)
[2019-10-14 17:48] LABS: Glucose,Whole Blood 124 mg/dL (75-99)
[2019-10-14 20:09] LABS: Glucose,Whole Blood 125 mg/dL (75-99)
[2019-10-14] MEDS: ATORVASTATIN 20 MG TAB PO SCH (20:10)
[2019-10-14] MEDS: MIRTAZAPINE 15 MG TAB PO SCH (20:10)
[2019-10-15 07:47] LABS: Glucose,Whole Blood 104 mg/dL (75-99)
[2019-10-15] MEDS: INSULIN ASPART (NovoLOG) 100 UNIT/ML VIAL SQ SCH ×4 (08:38→20:48)
[2019-10-15] MEDS: DULoxetine HCL 60 MG CAPSULE.DR PO SCH (08:38)
[2019-10-15] MEDS: CHOLECALCIFEROL 1,000 UNIT TAB PO SCH (08:38)
[2019-10-15] MEDS: LISINOPRIL 5 MG TAB PO SCH (08:38)
[2019-10-15] MEDS: ASPIRIN 81 MG PO SCH (08:39)
[2019-10-15] MEDS: metFORMIN 500 MG TAB PO SCH ×2 (08:39→20:20)
[2019-10-15] MEDS: FAMOTIDINE 20 MG TAB PO SCH ×2 (08:39→20:20)
[2019-10-15] MEDS: MULTIVITAMINS, THERA 1 EACH TAB PO SCH (08:39)
[2019-10-15] MEDS: NICOTINE 14MG/24HR PATCH TRANSDERM SCH (08:59)
--- NOTE | 2019-10-15 11:17 | P.PN ---
Progress Note - Text Interval history: The patient's found in the [facility] he follows me to an interview room. He indicates his mood is getting better. He states he feels safe he is reporting no suicidal thoughts. We discussed transitioning him to inpatient chemical dependency treatment tomorrow and he is agreeable. He expresses concerns about his psychotropic medications and those were addressed. Staff report he slept 7 hours last evening appetite is stable. He is demonstrated no behavioral disturbances. He spontaneously describes goals for himself such as completing rehab obtaining three-quarter housing and going to his outpatient treatment. He states that he has family members that he wants to reconnect with and be part of their lives. Mental status exam: The patient is an overweight -Maldivian male appearing his stated age she is dressed in hospital attire he is mobile with a wheelchair. Eye contact is appropriate speech is fluent spontaneous nonpressured. He reports his mood is better his affect is brighter he is reporting no suicidal or homicidal ideation intent or plan. He is reporting no auditory or visual hallu cinations or any specific delusions. There is no observed evidence of psychosis. He demonstrates no tangential thinking loose associations or flight of ideas he does not appear hypomanic or manic. He demonstrates no verbal or physical aggressiveness he demonstrates no involuntary repetitive movements. Insight and judgment in general improving. Plan: The patient will continue on his current psychotropic medications. We will monitor him for safety we will plan to discharge him tomorrow so that he can attend inpatient chemical dependency treatment at [facility]. Vital signs reviewed. He is encouraged to continue fully participating in the milieu.
[2019-10-15 12:36] LABS: Glucose,Whole Blood 103 mg/dL (75-99)
[2019-10-15 17:30] LABS: Glucose,Whole Blood 142 mg/dL (75-99)
[2019-10-15 20:19] LABS: Glucose,Whole Blood 121 mg/dL (75-99)
[2019-10-15] MEDS: MIRTAZAPINE 15 MG TAB PO SCH (20:20)
[2019-10-15] MEDS: ATORVASTATIN 20 MG TAB PO SCH (20:20)
[2019-10-16 07:45] LABS: Glucose,Whole Blood 106 mg/dL (75-99)
[2019-10-16] MEDS: MULTIVITAMINS, THERA 1 EACH TAB PO SCH (08:06)
[2019-10-16] MEDS: INSULIN ASPART (NovoLOG) 100 UNIT/ML VIAL SQ SCH ×4 (08:06→20:41)
[2019-10-16] MEDS: CHOLECALCIFEROL 1,000 UNIT TAB PO SCH (08:06)
[2019-10-16] MEDS: metFORMIN 500 MG TAB PO SCH ×2 (08:07→20:41)
[2019-10-16] MEDS: ASPIRIN 81 MG PO SCH (08:07)
[2019-10-16] MEDS: LISINOPRIL 5 MG TAB PO SCH (08:07)
[2019-10-16] MEDS: FAMOTIDINE 20 MG TAB PO SCH ×2 (08:08→20:41)
[2019-10-16] MEDS: DULoxetine HCL 60 MG CAPSULE.DR PO SCH (08:09)
--- NOTE | 2019-10-16 10:59 | P.PN ---
Progress Note - Text Interval history: The patient is found in his room he prefers not to speak in an interview room. He indicates his mood is okay. He still states suicidal thoughts "come and go". He has been selectively attending groups. Appetite is stable. We discussed our plan of getting him to inpatient chemical dependency treatment and it looks like our next available option will be Monday. He continues to state that he has no resources available to him to help with transportation. He has no questions or concerns regarding his psychotropic medication. No reports of any behavioral disturbance. Mental status exam: The patient is an alert -Niuean male appearing his stated age she is dressed in hospital gowns. Eye contact is appropriate speech is fluent spontaneous nonpressured. He indicates his mood is okay. He reports off and on suicidal thoughts that appear to be improving each day. He demonstrates a constricted affect. He reports no thoughts of wanting to harm others. He is endorsing no auditory or visual hallucinations or any specific delusions. There is no observed evidence of psychosis. He demonstrates no t angential thinking loose associations or flight of ideas. He does not appear hypomanic or manic. Insight and judgment slowly improving. He is oriented to person place and date. Plan: The patient will continue on his current psychotropic medications. We will continue to explore options for his transportation to [facility] on Monday. That appears to be the soonest date that we are able to transfer him to that facility. He is encouraged to fully participate in the milieu we will monitor him for safety. Vital signs reviewed.
[2019-10-16 12:41] LABS: Glucose,Whole Blood 89 mg/dL (75-99)
[2019-10-16 17:27] LABS: Glucose,Whole Blood 118 mg/dL (75-99)
[2019-10-16 20:23] LABS: Glucose,Whole Blood 166 mg/dL (75-99)
[2019-10-16] MEDS: MIRTAZAPINE 15 MG TAB PO SCH (20:41)
[2019-10-16] MEDS: ATORVASTATIN 20 MG TAB PO SCH (20:41)
[2019-10-17 07:31] LABS: Glucose,Whole Blood 108 mg/dL (75-99)
[2019-10-17] MEDS: INSULIN ASPART (NovoLOG) 100 UNIT/ML VIAL SQ SCH ×4 (07:41→20:22)
[2019-10-17] MEDS: ASPIRIN 81 MG PO SCH (07:52)
[2019-10-17] MEDS: metFORMIN 500 MG TAB PO SCH ×2 (07:52→20:21)
[2019-10-17] MEDS: MULTIVITAMINS, THERA 1 EACH TAB PO SCH (07:52)
[2019-10-17] MEDS: CHOLECALCIFEROL 1,000 UNIT TAB PO SCH (07:52)
[2019-10-17] MEDS: FAMOTIDINE 20 MG TAB PO SCH ×2 (07:53→20:21)
[2019-10-17] MEDS: DULoxetine HCL 60 MG CAPSULE.DR PO SCH (07:53)
[2019-10-17] MEDS: LISINOPRIL 5 MG TAB PO SCH (07:53)
[2019-10-17 08:38] VITALS: BMI 38.4
--- NOTE | 2019-10-17 10:53 | P.PN ---
Progress Note - Text Interval history: The patient's found in the hallway he approaches the office to speak. He indicates that his mood is improving. He has concerns that his left lower extremity is swelling and he is hoping that he can be given compression stockings. He indicates he has no plans of harming himself with those and feels safe on the mental health unit. It appears that he is not able to go to rehab until mid to later next week. It is important that he goes to rehab from this facility as he remains a high risk for relapsing with substance use. He has been attending meals he has been attending groups intermittently. Mental status exam: The patient is an overweight -Japanese male appearing his stated age he is dressed in hospital gowns. He is mobile with a wheelchair. Eye contact is appropriate speech is fluent spontaneous nonpressured. He is reporting no acute suicidal or homicidal ideation intent or plan at this time. He feels safe in the hospital. He is endorsing no auditory or visual hallucinations or any specific delusions. Insight and judgment limited but improving. He is oriented to person place and date. He demonstrates no tangential thinking loose associations or flight of ideas. Plan: The patient will continue on his current psychotropic medication. We will monitor him for safety we will encourage appropriate participation in the milieu. Our plan is to discharge him from the mental health unit directly to inpatient chemical dependency treatment next week. Vital signs reviewed.
[2019-10-17 12:24] LABS: Glucose,Whole Blood 114 mg/dL (75-99)
[2019-10-17 17:25] LABS: Glucose,Whole Blood 158 mg/dL (75-99)
[2019-10-17 20:04] LABS: Glucose,Whole Blood 136 mg/dL (75-99)
[2019-10-17] MEDS: MIRTAZAPINE 15 MG TAB PO SCH (20:21)
[2019-10-17] MEDS: ATORVASTATIN 20 MG TAB PO SCH (20:22)
[2019-10-18 07:46] LABS: Glucose,Whole Blood 112 mg/dL (75-99)
[2019-10-18] MEDS: INSULIN ASPART (NovoLOG) 100 UNIT/ML VIAL SQ SCH ×4 (07:57→20:07)
[2019-10-18] MEDS: DULoxetine HCL 60 MG CAPSULE.DR PO SCH (07:58)
[2019-10-18] MEDS: FAMOTIDINE 20 MG TAB PO SCH ×2 (07:58→20:04)
[2019-10-18] MEDS: CHOLECALCIFEROL 1,000 UNIT TAB PO SCH (07:58)
[2019-10-18] MEDS: LISINOPRIL 5 MG TAB PO SCH (07:58)
[2019-10-18] MEDS: ASPIRIN 81 MG PO SCH (07:58)
[2019-10-18] MEDS: MULTIVITAMINS, THERA 1 EACH TAB PO SCH (07:59)
[2019-10-18] MEDS: metFORMIN 500 MG TAB PO SCH ×2 (07:59→20:03)
--- NOTE | 2019-10-18 11:43 | P.PN ---
Progress Note - Text Interval history: The patient is found in the [facility]. He indicates that his mood is improving. He states he's been spending time thinking about what he needs to do with his life. He states he remains committed to attending inpatient chemical dependency treatment. He states that he thinks the Cymbalta may be causing some upset stomach. Today is the first a he's had that feeling he is willing to comply with medication longer to see if it persists. We'll address this further. He has been sleeping night he has been eating he has been showering. Staff report no behavioral disturbances. He selectively attended groups. Mental status exam: The patient is an overweight -Samoan male appearing his stated age, he presents with adequate hygiene grooming he is dressed in hospital gowns he is wearing the compression stocking on his left lower extremity. Eye contact is appropriate speech is fluent spontaneous nonpr essured. He indicates his mood is improving. He indicates he feels safe in the hospital. He reports no thoughts of harming others. There is no evidence or report of symptoms of psychosis. He does not appear hypomanic or manic. Insight and judgment improving. He remains oriented to person place and date. Plan: The patient will continue on his current psychotropic medications. We will consider changing the Cymbalta if he reports persistent side effect. We will monitor for safety he is encouraged to fully participate in the milieu. Vital signs reviewed.
[2019-10-18 12:31] LABS: Glucose,Whole Blood 126 mg/dL (75-99)
[2019-10-18 17:29] LABS: Glucose,Whole Blood 137 mg/dL (75-99)
[2019-10-18] MEDS: MIRTAZAPINE 15 MG TAB PO SCH (20:03)
[2019-10-18] MEDS: ATORVASTATIN 20 MG TAB PO SCH (20:03)
[2019-10-18 20:07] LABS: Glucose,Whole Blood 185 mg/dL (75-99)
[2019-10-19 07:57] LABS: Glucose,Whole Blood 110 mg/dL (75-99)
[2019-10-19] MEDS: INSULIN ASPART (NovoLOG) 100 UNIT/ML VIAL SQ SCH ×4 (08:26→20:11)
[2019-10-19] MEDS: LISINOPRIL 5 MG TAB PO SCH (08:41)
[2019-10-19] MEDS: CHOLECALCIFEROL 1,000 UNIT TAB PO SCH (08:41)
[2019-10-19] MEDS: ASPIRIN 81 MG PO SCH (08:41)
[2019-10-19] MEDS: metFORMIN 500 MG TAB PO SCH ×2 (08:41→20:12)
[2019-10-19] MEDS: DULoxetine HCL 60 MG CAPSULE.DR PO SCH (08:41)
[2019-10-19] MEDS: FAMOTIDINE 20 MG TAB PO SCH ×2 (08:41→20:12)
[2019-10-19] MEDS: MULTIVITAMINS, THERA 1 EACH TAB PO SCH (08:42)
--- NOTE | 2019-10-19 09:55 | P.PN ---
Progress Note - Text Interval history: The patient's found in the [facility] he follows me to an interview room. He states that his mood is all right. He states that he feels that he is stabilizing. He reports that today is his 59th birthday. He states that he is trying to take inventory and he wants his life to turn around. He plans on contacting his son and daughter today he states they have always been supportive. He has no questions or concerns regarding medication today no reports of nausea with Cymbalta. He has been attending groups he's been sleeping at night vital signs stable. Mental status exam: The patient is an overweight -Djiboutian male appearing his stated age she is dressed in hospital gowns. He remains mobile with a wheelchair. Eye contact is appropriate he's pleasant cooperative he is easily directed. He is reporting no acute suicidal or homicidal ideation intent or plan. He is reporting no auditory or visual hallucinations or any specific delusions. There is no evidence of psychosis hypomania or mable. He remains oriented to person place and date. Affect is becoming more appropriately expresses. Insight and judgment improving. Plan: The patient will continue on his current psychotropic medication. We will monitor him for safety. He is encouraged to participate fully in the milieu. We continue to await his placement at [facility] next week.
[2019-10-19 12:36] LABS: Glucose,Whole Blood 117 mg/dL (75-99)
[2019-10-19 17:09] LABS: Glucose,Whole Blood 138 mg/dL (75-99)
[2019-10-19 20:09] LABS: Glucose,Whole Blood 160 mg/dL (75-99)
[2019-10-19] MEDS: MIRTAZAPINE 15 MG TAB PO SCH (20:13)
[2019-10-19] MEDS: ATORVASTATIN 20 MG TAB PO SCH (20:13)
[2019-10-20 07:52] LABS: Glucose,Whole Blood 106 mg/dL (75-99)
[2019-10-20] MEDS: INSULIN ASPART (NovoLOG) 100 UNIT/ML VIAL SQ SCH ×4 (08:05→20:14)
[2019-10-20] MEDS: DULoxetine HCL 60 MG CAPSULE.DR PO SCH (08:08)
[2019-10-20] MEDS: ASPIRIN 81 MG PO SCH (08:08)
[2019-10-20] MEDS: CHOLECALCIFEROL 1,000 UNIT TAB PO SCH (08:08)
[2019-10-20] MEDS: FAMOTIDINE 20 MG TAB PO SCH ×2 (08:09→20:16)
[2019-10-20] MEDS: MULTIVITAMINS, THERA 1 EACH TAB PO SCH (08:09)
[2019-10-20] MEDS: LISINOPRIL 5 MG TAB PO SCH (08:09)
[2019-10-20] MEDS: metFORMIN 500 MG TAB PO SCH ×2 (08:09→20:16)
--- NOTE | 2019-10-20 11:41 | P.PN ---
Progress Note - Text Interval history: The patient is found in the [facility] she does not wish to speak with me into an interview room. He indicates his mood is fine. He indicates he has no questions or concerns. Mental status exam: The patient is a 59-year-old -Swazi male appearing his stated age. He seated in his wheelchair watching TV. He is dressed in hospital gowns. Eye contact is appropriate for our brief interaction. He again does not wish to speak with me in an interview room. He indicates his mood is fine. Affect is euthymic. He is observed appropriately interacting with peers. He is in no physical distress. He demonstrates no verbal or physical aggressiveness he demonstrates no involuntary repetitive movements. Plan: The patient will continue on his current psychotropic medications. We will monitor him for safety he is encouraged to continue participating in groups. We are awaiting his placement at [place].
[2019-10-20 12:34] LABS: Glucose,Whole Blood 113 mg/dL (75-99)
[2019-10-20 17:21] LABS: Glucose,Whole Blood 124 mg/dL (75-99)
[2019-10-20 20:12] LABS: Glucose,Whole Blood 178 mg/dL (75-99)
[2019-10-20] MEDS: MIRTAZAPINE 15 MG TAB PO SCH (20:16)
[2019-10-20] MEDS: ATORVASTATIN 20 MG TAB PO SCH (20:16)
[2019-10-21 07:41] LABS: Glucose,Whole Blood 119 mg/dL (75-99)
[2019-10-21] MEDS: INSULIN ASPART (NovoLOG) 100 UNIT/ML VIAL SQ SCH ×5 (07:51→20:23)
[2019-10-21] MEDS: DULoxetine HCL 60 MG CAPSULE.DR PO SCH (08:30)
[2019-10-21] MEDS: MULTIVITAMINS, THERA 1 EACH TAB PO SCH (08:30)
[2019-10-21] MEDS: LISINOPRIL 5 MG TAB PO SCH (08:30)
[2019-10-21] MEDS: ASPIRIN 81 MG PO SCH (08:30)
[2019-10-21] MEDS: CHOLECALCIFEROL 1,000 UNIT TAB PO SCH (08:30)
[2019-10-21] MEDS: FAMOTIDINE 20 MG TAB PO SCH ×2 (08:30→20:25)
[2019-10-21] MEDS: metFORMIN 500 MG TAB PO SCH ×2 (08:30→20:25)
--- NOTE | 2019-10-21 11:05 | P.PN ---
Progress Note - Text Interval history: The patient is found in the [facility]. He indicates his mood is good. He is looking forward to being discharged to go to inpatient chemical dependency treatment. He reports that his appetite stable he has been sleeping at night. He has no questions or concerns today. The patient is an alert -[place] male appearing his stated age. He remains mobile with a wheelchair he is dressed in hospital gowns. Eye contact is appropriate. Speech is fluent spontaneous nonpressured. He indicates his mood is good. Affect is congruent and appears euthymic. He is reporting no suicidal ideation intent or plan. He is reporting no homicidal ideation intent or plan. He is endorsing no symptoms of psychosis there are no evidence symptoms of psychosis. He demonstrates no tangential thinking loose associations or flight of ideas. He demonstrates no verbal or physical aggressiveness. Plan: The patient will be continued on his current psychotropic medication. We will monitor him for safety. Vital signs reviewed. We will continue with our plan of discharging him Monday morning to go to inpatient chemical dependency treatment.
[2019-10-21 12:35] LABS: Glucose,Whole Blood 92 mg/dL (75-99)
--- NOTE | 2019-10-21 15:29 | PN ---
PROGRESS NOTE DATE OF SERVICE: 10/21/2019 This is a 59-year-old gentleman with a past medical history of multiple problems admitted to psychiatric floor. The patient is having diabetes mellitus type 2. The patient was receiving Lantus 50 units at home and Apidra 12 units with meals. The patient complained about 1 week prior to admission when the patient started binge drinking, according to him. He was trying to adjust the sugars by himself at home, but the sugars are never below 78, which was lowest during the past 2 weeks, according to him, the highest was around 180, but currently here, the patient is only receiving Glucophage and sugars are between 113 and 119. The patient will be being closely monitored. PAST MEDICAL HISTORY: Reviewed. PHYSICAL EXAM: Patient is alert, oriented x3. Pulse is 60, blood pressure 130/60, respiration 18, temperature 98.4, pulse ox 98% on room air. HEENT: Conjunctivae normal. NECK: No jugular venous distension. CARDIOVASCULAR; S1, S2, muffled, RESPIRATORY: Breath sounds diminished at the bases, no rhonchi, no crackles. ABDOMEN: Soft. NERVOUS SYSTEM: Diffusely weak. LABS: Accu-Cheeks 178, 190, 192. ASSESSMENT: 1. Diabetes mellitus type 2. 2. Hypertension. 3. Chronic pain syndrome, history of depression. 4. History of ETOH abuse. 5. Hyperlipidemia. 6. Gait dysfunction. RECOMMENDATION: In this 59-year-old gentleman who presented with multiple complex medical issues. I would recommend to initiate a small dose of Lantus 25 units and see the response. However, otherwise, there is a likelihood of the patient developing hyperglycemia. Other than that, will continue to monitor. The patient's compliance is also questionable, but how we will continue to monitor. In case the blood sugar drops, will send the patient only on Glucophage to [facility] and continue to monitor. Also recommend close followup with Dr. Flakita Pimentel, who is the primary physician. MMODL / IJN: [id number] /
[2019-10-21 17:45] LABS: Glucose,Whole Blood 134 mg/dL (75-99)
[2019-10-21] MEDS: INSULIN DETEMIR (LEVEMIR) 100 UNIT/ML SYR SQ SCH (20:22)
[2019-10-21 20:24] LABS: Glucose,Whole Blood 157 mg/dL (75-99)
[2019-10-21] MEDS: MIRTAZAPINE 15 MG TAB PO SCH (20:25)
[2019-10-21] MEDS: ATORVASTATIN 20 MG TAB PO SCH (20:25)
[2019-10-22 07:37] LABS: Glucose,Whole Blood 101 mg/dL (75-99)
[2019-10-22] MEDS: INSULIN ASPART (NovoLOG) 100 UNIT/ML VIAL SQ SCH ×7 (08:08→20:21)
[2019-10-22] MEDS: CHOLECALCIFEROL 1,000 UNIT TAB PO SCH (08:31)
[2019-10-22] MEDS: ASPIRIN 81 MG PO SCH (08:31)
[2019-10-22] MEDS: MULTIVITAMINS, THERA 1 EACH TAB PO SCH (08:32)
[2019-10-22] MEDS: metFORMIN 500 MG TAB PO SCH ×2 (08:32→20:21)
[2019-10-22] MEDS: DULoxetine HCL 60 MG CAPSULE.DR PO SCH (08:32)
[2019-10-22] MEDS: FAMOTIDINE 20 MG TAB PO SCH ×2 (08:32→20:21)
[2019-10-22] MEDS: LISINOPRIL 5 MG TAB PO SCH (08:33)
--- NOTE | 2019-10-22 10:53 | P.DS ---
Providers Date of admission: 10/09/19 06:58 Expected date of discharge: 10/23/19 Attending physician: Salazar Sellers Consults: 10/09/19 07:03 Consult Physician Routine Consulting Provider: Micki Courtney Consult Reason/Comments: Medical Management Do you want consulting provider notified?: Yes Primary care physician: Flakita Ramosumar - Discharge Diagnosis(es) (1) Major depressive disorder, recurrent severe without psychotic features Current Visit: Yes Status: Acute Priority: High (2) Alcohol use disorder, severe, dependence Current Visit: Yes Status: Acute Priority: High (3) Cocaine use disorder, severe, dependence Current Visit: Yes Status: Acute Priority: High (4) Cannabis use disorder, moderate, dependence Current Visit: Yes Status: Acute Priority: Medium Hospital Course: Brief summary of admission note: This patient is a 59-year-old -Chilean male who was admitted to the mental health unit through the emergency room for acute suicidal ideation. The patient presented with hopelessness thinking suicidal thoughts. Stressors included lack of social support and being homeless. He continues to struggle with addiction to alcohol and cocaine as well as cannabis. He described low energy and poor motivation decreased self- care. He states he was spending his time using alcohol and other substances and not attending to his diabetes. For full details please refer to my psychiatric evaluation dictated 10/09/2019. Summary of hospital course: The patient was admitted to the mental health unit voluntarily. We reviewed his presenting symptoms and treatment options. We ultimately decided to restart Cymbalta. He felt that that was a medication that did provide benefit in the past. We restarted Remeron in the evening to help with sleep. The patient was seen by internal medicine for routine history and physical exam. Special attention was paid to his diabetes control. He did comply with our recommendation for inpatient chemical dependency treatment and arrangements were made for him to go to [facility] which she will start tomorrow. The patient attended groups he demonstrated no behavioral disturbances he reports a resolution of any suicidal ideation. He describes future oriented thinking. Mental status exam: The patient is an alert obese -Chilean male appearing his stated age. He is dressed in hospital gowns. He is mobile with a wheelchair. 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 Eye contact is appropriate speech is fluent, spontaneous and nonpressured. He demonstrates no tangential thinking loose associations or flight of ideas. He indicates his mood is good. He reports no hopelessness thinking he reports no suicidal ideation intent or plan. He reports no homicidal ideation intent or plan. He endorses no auditory or visual hallucinations or any specific delusions there is no observed evidence of psychosis. Insight and judgment grossly intact cognitively he is grossly intact. Affect is euthymic. Impressions 1. Major depressive disorder recurrent severe without psychosis, alcohol use disorder severe, cocaine use disorder severe, cannabis use disorder moderate Plan: The patient will be discharged mental health unit early tomorrow morning. He will be transported to [facility] where he will take the shuttle to [facility] for inpatient chemical dependency treatment. The patient will continue on Cymbalta 60 mg daily and Remeron 15 mg at bedtime. At this time there is no imminent safety risk he is appropriate for transition to inpatient chemical dependency treatment. He is instructed to return to the hospital with any acute safety concerns. We discussed the importance of abstaining from alcohol and illicit drugs as those substances will precipitate psychiatric symptoms and elevate his safety risk. He does not wish to start any new medication for substance use issues specifically as he will address this further in rehab. Patient Condition at Discharge: Stable Plan - Discharge Summary Discharge Rx Participant: No New Discharge Prescriptions: New DULoxetine HCL [Cymbalta] 60 mg PO DAILY #30 capsule. Insulin Detemir (Levemir) [Levemir] 25 unit SQ HS #1 vial Naproxen [Naprosyn] 250 mg PO TID PRN #45 tab PRN Reason: Pain INSULIN ASPART (NovoLOG) [NovoLOG (formulary)] 2 unit SQ AC-TID #1 vial Famotidine [Pepcid] 20 mg PO BID #60 tab Mirtazapine [Remeron] 15 mg PO HS #30 tab Continue Aspirin EC [Ecotrin Low Dose] 81 mg PO DAILY #30 tablet. metFORMIN HCL 1,000 mg PO BID #60 tablet Multivitamins, Thera [Multivitamin (formulary)] 1 tab PO DAILY #30 tab Cholecalciferol (Vitamin D3) [Vitamin D3] 2,000 unit PO DAILY #30 capsule Lisinopril [Zestril] 5 mg PO DAILY #30 tab Simvastatin [Zocor] 40 mg PO HS #30 tab Discontinued Escitalopram [Lexapro] 20 mg PO DAILY #30 tab Insulin Glargine [Lantus] 50 unit SQ HS ARIPiprazole [Abilify] 10 mg PO DAILY Insulin Lispro [Admelog] 12 units SQ AC-TID LORazepam [Ativan] 0.5 mg PO BID PRN PRN Reason: Anxiety Discharge Medication List Aspirin EC [Ecotrin Low Dose] 81 mg PO DAILY #30 tablet. 10/22/19 [Rx] Cholecalciferol (Vitamin D3) [Vitamin D3] 2,000 unit PO DAILY #30 capsule 10/22/19 [Rx] DULoxetine HCL [Cymbalta] 60 mg PO DAILY #30 capsule. 10/22/19 [Rx] Famotidine [Pepcid] 20 mg PO BID #60 tab 10/22/19 [Rx] INSULIN ASPART (NovoLOG) [NovoLOG (formulary)] 2 unit SQ AC-TID #1 vial 10/22/19 [Rx] Insulin Detemir (Levemir) [Levemir] 25 unit SQ HS #1 vial 10/22/19 [Rx] Lisinopril [Zestril] 5 mg PO DAILY #30 tab 10/22/19 [Rx] Mirtazapine [Remeron] 15 mg PO HS #30 tab 10/22/19 [Rx] Multivitamins, Thera [Multivitamin (formulary)] 1 tab PO DAILY #30 tab 10/22/19 [Rx] Naproxen [Naprosyn] 250 mg PO TID PRN #45 tab 10/22/19 [Rx] Simvastatin [Zocor] 40 mg PO HS #30 tab 10/22/19 [Rx] metFORMIN HCL 1,000 mg PO BID #60 tablet 10/22/19 [Rx] Follow up Appointment(s)/Referral(s): intake,intake [Other] - 10/23/19 8:30 am (Pt needs to be at [facility] on 10/23/19 at 8:30 am for transporation to [facility].) Flakita Pimentel MD [Primary Care Provider] - 1-2 days Activity/Diet/Wound Care/Special Instructions: Activity and diet as tolerated. Avoid the use of street drugs and alcohol. Take all medications as prescribed. When you are in need of refills on your medications please contact your medical provider and/or outpatient psychiatrist to have this done. Please go to scheduled outpatient appointment for aftercare treatment. If symptoms return or become worse, call the crisis line at and/or go to the nearest emergency room for evaluation.
[2019-10-22 12:52] LABS: Glucose,Whole Blood 80 mg/dL (75-99)
[2019-10-22 17:05] LABS: Glucose,Whole Blood 144 mg/dL (75-99)
--- NOTE | 2019-10-22 17:25 | PN ---
PROGRESS NOTE DATE OF SERVICE: 10/22/2019 This is a 59-year-old gentleman who was admitted with psychiatric issues and diabetes type 2. The patient is taking up to 40 units of Lantus per night, but currently on 25 units of Lantus, the blood sugar appears to be fairly well-controlled with 2 units of Apidra. The patient is slated to go to rehab tomorrow. No chest pain. No palpitations. No fever. The patient is requesting a glucometer. PHYSICAL EXAMINATION: Alert and oriented x3. Pulse is 54, blood pressure 119/60, respiration 17, temperature 98 degrees, pulse ox 97% on room air. HEENT: Normal. NECK: No jugular venous distension. CARDIOVASCULAR: S1, S2 muffled. RESPIRATORY SYSTEM: Breath sounds diminished at the bases, no rhonchi, no crackles. ABDOMEN: Soft. \ NERVOUS SYSTEM: No focal deficits. LABS: Accu-Cheks 134, 157, 180. ASSESSMENT: 1. Diabetes mellitus type 2. 2. Hypertension. 3. Chronic pain syndrome. 4. History of depression. 5. History of ETOH abuse. 6. Hyperlipidemia. 7. Gait dysfunction. RECOMMENDATION: I would recommend to continue the current medications with Lantus 25 units and Apidra 2 units and hold the Apidra if Accu-Cheks less than 100 and monitored logs closely, follow closely with primary physician in the outpatient setting. Prescriptions for glucometer was given to be arranged before discharge. Otherwise, patient also complaining of minimal numbness on the outer aspect of the right left elbow. Symptomatic treatment is recommended and continued followup in the outpatient setting. MMODL / IJN: [id number] /
[2019-10-22 19:57] LABS: Glucose,Whole Blood 179 mg/dL (75-99)
[2019-10-22] MEDS: INSULIN DETEMIR (LEVEMIR) 100 UNIT/ML SYR SQ SCH (20:21)
[2019-10-22] MEDS: MIRTAZAPINE 15 MG TAB PO SCH (20:21)
[2019-10-22] MEDS: ATORVASTATIN 20 MG TAB PO SCH (20:21)
[2019-10-23 07:12] VITALS: BP 126/66; PULSE 69; RESP 16; TEMP 97.9
[2019-10-23 07:43] LABS: Glucose,Whole Blood 125 mg/dL (75-99)
[2019-10-23] MEDS: INSULIN ASPART (NovoLOG) 100 UNIT/ML VIAL SQ SCH ×2 (07:47)
[2019-10-23] MEDS: DULoxetine HCL 60 MG CAPSULE.DR PO SCH (07:48)
[2019-10-23] MEDS: ASPIRIN 81 MG PO SCH (07:48)
[2019-10-23] MEDS: CHOLECALCIFEROL 1,000 UNIT TAB PO SCH (07:48)
[2019-10-23] MEDS: FAMOTIDINE 20 MG TAB PO SCH (07:48)
[2019-10-23] MEDS: MULTIVITAMINS, THERA 1 EACH TAB PO SCH (07:49)
[2019-10-23] MEDS: LISINOPRIL 5 MG TAB PO SCH (07:49)
[2019-10-23] MEDS: metFORMIN 500 MG TAB PO SCH (07:49)
== END 2019-10-23 08:40 | DRG 885 ==
LOC: EC 04:40 → 3MHU 06:58
PROVIDERS: ADMIT Psychiatry & Neurology Psychiatry; ATTEND Psychiatry & Neurology Psychiatry
DX: F33.2 Major depressive disorder, recurrent severe without psychotic features (principal); R45.851 Suicidal ideations; F14.20 Cocaine dependence, uncomplicated; G89.4 Chronic pain syndrome; F12.20 Cannabis dependence, uncomplicated; F10.20 Alcohol dependence, uncomplicated; E78.5 Hyperlipidemia, unspecified; E66.9 Obesity, unspecified; E11.9 Type 2 diabetes mellitus without complications; R26.9 Unspecified abnormalities of gait and mobility; I10 Essential (primary) hypertension; F17.200 Nicotine dependence, unspecified, uncomplicated; Z79.82 Long term (current) use of aspirin; Z79.4 Long term (current) use of insulin; Z79.899 Other long term (current) drug therapy; Z91.5 Personal history of self-harm
CPT/HCPCS: 36415; 80053; 80061; 80306; 82075; 83036; 84443; 85025; 99285